=== PATIENT | male | born 1955 | race Caucasian/White ===

== ENCOUNTER → 2019-12-02 11:37 | Outpatient (BNVA) | payer MEDICARE, MEDICAID, SELFPAY | PROVIDERS: Family Provider Family Medicine; PCP Family Medicine; Visit Provider Orthopaedic Surgery | DX: M25.561 Pain in right knee (principal) | CPT/HCPCS: 73562 ==

== ENCOUNTER 2019-12-09 05:46 | Day surgery (SDC) | payer MEDICARE, MEDICAID, SELFPAY ==
--- NOTE | 2019-12-06 10:44 | ECG_ITS ---
Measurements Intervals [place] Rate: 81 P: 46 IA: 183 QRS: -46 QRSD: 97 T: 40 QT: 359 QTc: 419 SINUS RHYTHM PATTERN CONSISTENT WITH PULMONARY DISEASE LEFT ANTERIOR FASCICULAR BLOCK [QRS AXIS <= -45, QR IN I, RS IN II] MINIMAL VOLTAGE CRITERIA FOR LVH, CONSIDER NORMAL VARIANT [MEETS CRITERIA IN ONE OF: R(aVL), S(V1), R(V5), R(V5/V6)+S(V1)] Compared to ECG 09/27/2018 10:49:57 No significant changes Electronically Signed On 12-06-2019 22:08:06 [facility] by Carmelo Mac M.D. [id number]
[2019-12-06 11:19] VITALS: BMI 28.6
--- NOTE | 2019-12-06 11:54 | ANES.PREANES ---
Pre-Anesthetic Assessment Pre-Anesthetic Assessment: Height/Weight: Height 1.83 m Weight 95.708 kg Preop Diagnosis: right knee medial and lateral meniscal tears Proposed Procedure: Operation Date: 12/09/19 07:40 Proposed Procedures p Knee Arthroscopy with medial and lateral meniscectomy 12922 M17.11(Right) - Rubens Vazquez DO Social: Social History: Tobacco Pack years: 30 Comment: quit 30 years ago Exam: Pre-Anes Outpt Exam: alert, oriented x 3, clear to auscultation bilaterally and regular rate & rhythm Airway: Submandibular: WNL Cervical ROM: WNL MP: 2 CV/HEM: CV/HEM: HTN (rx'd x 10 y) and [facility] Comments: '08 [facility] stents x 11, last '12, Without angina Metabolic: Metabolic: DM Comments: rx'd 20y, normally 130-160 Musc/skel: Musc/skel: Lower Back Pain Comments: left radiculopathy Anesthetic Plan: ASA status: III PFSH Anesthesia PFSH: Social History Smoking and tobacco status: never smoked Alcohol intake: never Data Anesthesia Cardiac Studies: No Data to Display
[2019-12-06 12:36] LABS: Anion Gap 15.3 (5-19); Blood Urea Nitrogen 21 mg/dL (8-23); Calcium 9.7 mg/Dl (8.8-10.2); Carbon Dioxide 29 mmol/L (22-29); Chloride 97 mmol/L (98-107); Glomerular Filtration Rate 96.7 mL/min (90-130); Glucose 108 mg/dL (74-106); Potassium 4.3 mmol/L (3.5-5.1); Sodium 137 mmol/L (136-145)
[2019-12-09] VITALS (7 sets, daily range): BP systolic 111–138; BP diastolic 68–78; PULSE 65–89; RESP 12–18; TEMP 36.1–37.3; O2SAT 93–100
[2019-12-09 06:16] LABS: Glucose Point of Care 158 mg/dL (70-110)
--- NOTE | 2019-12-09 06:57 | PM.HPUD ---
H&P update H&P Update: DATE OF SURGERY/PROCEDURE: 12/09/19 DATE H&P PERFORMED: 12/02/19 PLANNED PROCEDURE: Operation Date: 12/09/19 07:40 Proposed Procedures p Knee Arthroscopy with medial and lateral meniscectomy 65285 M17.11(Right) - Rubens Vazquez DO Full H&P Perinent History: Medical/Surgical History: Medical History (Updated 12/03/19 @ 18:20 by Rubens Vazquez DO) Tear of lateral meniscus of right knee, current (Acute) Tear of medial meniscus of right knee (Acute) Family History: Family History (Updated 12/02/19 @ 11:57 by Jenn Paige LPN) Father CAD (coronary artery disease) Hypertension Stroke Brother Cancer Grandmother Diabetes Hyperlipidemia Denies family history of Clotting disorder Dementia Psychiatric illness Chronic kidney disease (CKD) Suicide Anesthesia complication Bleeding disorder Family history of premature coronary artery disease Lung disease Social History: Social History Smoking and tobacco status: never smoked Alcohol intake: never
--- NOTE | 2019-12-09 06:58 | P.OP_ITS ---
Operative Report Date of procedure: 12/09/19 Pre-op Diagnosis: right knee medial and lateral meniscal tears Post-op diagnosis: same Post-op Findings: Right knee medial and lateral degenerative meniscal tears with tricompartmental osteoarthritis with grade 2-3 changes throughout the right knee Procedure Done: Diagnostic arthroscopy right knee with partial arthroscopic medial and lateral meniscectomies Implants: Not applicable Specimens removed/disposition: Portions of synovium, articular cartilage and resected portions of medial and lateral menisci disposed of in OR Pathology: none sent Surgeon: Rubens Vazquez Anesthesia: General Estimated blood loss (mL): 5 Tourniquet time (min): 22 (At 300 mmHg pressure) Complications: None Findings: See postop findings Anterior and posterior cruciate ligaments intact both visually endoprobe Condition: stable Disposition: PACU Brief History: 64-year-old white male with chronic complaints of right knee pain. Past medical history remarkable for IM nailing of intertrochanteric right-sided hip fracture. He has had pain since his injury caused by intertrochanteric hip fracture. X-rays show tricompartmental osteoarthritis but not [id number] changes in the right knee. MRI showed increased signal in the medial and lateral menisci suggestive of degenerative tearing as well as arthritic change small amount of fluid. Risk, benefits potential complications of surgery scuffs the patient. Risks include are not limited to failure of all pain positive for the surgery later date such as total knee replacement, infection, nerve/blood vessel/injury. Medical complications include blood clots, heart attack, stroke risk up to including . All questions answered patient able to proceed with surgery. Procedure: Patient notified in the preop holding area. Surgical site was signed. Surgical permit was signed. Patient to 2 g of Ancef intravenously for surgical prophylaxis. He was taken to the operating. He was placed supine on the operative table. He was placed under general anesthesia that difficulty. Tourniquet is placed at the upper aspect of the right thigh. Right lower extremity and sterilely prepped and draped usual fashion. A timeout was performed. The areas for making her anteromedial anterolateral portals were injected with 10 cc of one-to-one mixture of 1% lidocaine half percent r opivacaine. Operative limb was exsanguinated using Esmarch bandage tourniquet deflated to 300 mmHg pressure. Standard anteromedial and lateral portals made with #11 blade. Otoscopic sheath with the scope was inserted into the suprapatellar pouch the knee was distended using sterile saline and dilute epinephrine solution using the arthroscopic pump. Probe was inserted through the anteromedial portal. Systematic examination of the right knee was performed. See above findings. Using medical biters and motorized shaver we first resected the torn areas of the free edge of the lateral meniscus followed by resection of the posterior horn tear of the medial meniscus. Incidental chondroplasties of the tibial plateaus and femoral condyles medial and laterally was performed. We use the motorized shaver to remove loose fragments of meniscal tissue from the knee as well as portions of synovium to facilitate the visualization. Once the knee was copiously irrigated. The portals were closed with nylon sutures on skin the was injected with 10 cc of half percent ropivacaine and 40 mg of Kenalog. Antibiotic ointment was applied followed by sterile dressings. Victor Hugo wrap was applied from ankle to mid thigh. Tourniquet was deflated during application of dressings. The patient was aroused from general anesthesia. He was taken to recovery. Tolerated surgery well. All counts are correct.
[2019-12-09] MEDS: sodium chloride 0.9% 1,000 ML 30 ML IV (07:00)
--- NOTE | 2019-12-09 07:52 | P.ANES_ITS ---
Pre-Anesthetic Update Pre-Anesthetic Assessment: Date of Surgery/Procedure: 12/09/19 Preop Suzan gnosis: right knee medial and lateral meniscal tears Proposed Procedure: Operation Date: 12/09/19 07:40 Proposed Procedures p Knee Arthroscopy with medial and lateral meniscectomy 77519 M17.11(Right) - Rubens Vazquez, DO Any changes to Pre-Anesthetic Assessment?: No Last Intake: Intake Last Liquid Date 12/08/19 Last Liquid Time 23:45 Last Solid Date 12/08/19 Last Solid Time 23:45 Labs Last 48hrs: Laboratory Results - last 48 hr 12/09/19 06:13 POC Glucose 158 Vitals: Temperature 99.1 F 12/09/19 06:15 Temperature Source Temporal Artery S can 12/09/19 06:15 Pulse Rate 80 12/09/19 06:15 Pulse Rhythm 12/09/19 06:15 Pulse Strength 3+ Normal 12/09/19 06:15 Respiratory Rate 18 12/09/19 06:15 Respiratory Effort Non-Labored 12/09/19 06:15 Respiratory Depth Normal 12/09/19 06:15 Blood Pressure 138/76 12/09/19 06:15 Blood Pressure Nataliya n 96 12/09/19 06:15 Pulse Oximetry 93 12/09/19 06:15 Oxygen Delivery Me thod 12/09/19 06:15 Exam: Pre-Anes Outpt Exam: alert, oriented x 3, clear to auscultation bilaterally and regular rate & rhythm Cardiac Studies: No Data to Display
[2019-12-09] MEDS: triamcinolone 40 mg/mL SDV IM (08:24)
[2019-12-09] MEDS: EPINEPHrine 1 mg/mL INJ 2 MG XX (08:24)
[2019-12-09] MEDS: neomycin-poly-bacitracin oint 28 gm 1 APPLIC TOPICAL (08:41)
== END 2019-12-09 10:15 | disposition home or self-care (01) ==
PROVIDERS: Anesthesiology; Family Provider Family Medicine; PCP Family Medicine; Visit Provider Orthopaedic Surgery
PROC: (CPT 29870; principal; 2019-12-09 07:40)
DX: S83.281A Other tear of lateral meniscus, current injury, right knee, initial encounter (principal); S83.241A Other tear of medial meniscus, current injury, right knee, initial encounter; X58.XXXA Exposure to other specified factors, initial encounter; Z82.49 Family history of ischemic heart disease and other diseases of the circulatory system; Z83.3 Family history of diabetes mellitus
CPT/HCPCS: 29880; 12345; 36415; 36416; 80048; 82962; 93005; 96365; J0171; J0330; J0690; J1885; J2001; J2370; J2405; J2704; J2765; J2795; J3010; J3301; J3490; J7030

== ENCOUNTER → 2020-03-09 08:55 | Outpatient (BNVA) | payer MEDICARE, MEDICAID, SELFPAY | PROVIDERS: Family Provider Family Medicine; PCP Family Medicine; Referring Provider Family Medicine; Visit Provider Orthopaedic Surgery | DX: M25.551 Pain in right hip (principal) | CPT/HCPCS: 73502 ==

== ENCOUNTER 2020-03-19 08:08 | Outpatient (CLI) | payer MEDICARE, MEDICAID, SELFPAY ==
--- NOTE | 2020-03-19 08:30 | CT_ITS ---
WS: [id number] CT RIGHT HIP, NONCONTRAST. HISTORY: post operative state Technique: All CT scans at [facility] use at least one of these dose optimization techniq ues: automated exposure control; mA and/or kV adjustment per patient size (includes targeted exams wh ere dose is matched to clinical indication); or iterative reconstruction. DLP: 1415.92 mGycm COMPARISON: 03/09/2020 radiographs. Status post long intramedullary femoral olya with single femoral neck screw. Femoral neck fracture sti ll evident without callus formation or complete healing. The alignment is normal. Distal locking scre w unchanged since the most recent radiographs. No fracture distally. Central position of the intramed ullary olya. No fluid collections or soft tissue abnormalities. Mild osteopenia. There is bowing of the distal intramedullary locking screw. New finding since 04/18/2019. There does ap pear to be a gap within the threads of the screw centrally seen on image 147 of series 2. Suspicious but not diagnostic for fracture of the locking screw. CT/CT hip RT wo con* [id number] IMPRESSION: 1. Status post long intramedullary olya and screw fixation of the femoral neck fracture. Fracture is still evident without callus formation or complete healin g. Alignment is good. 2. No fracture or abnormality along the distal intramedullary olya. 3. There is mild bowing of the distal locking screw. No screw fracture is iden tified. This does represent a change since the prior radiograph of 04/18/2019. [place] spect there could be a fracture as there is a gap within the screw threads in t he central intramedullary olya.
== END 2020-03-19 08:09 | disposition home or self-care (01) ==
PROVIDERS: Family Provider Family Medicine; PCP Family Medicine; Visit Provider Orthopaedic Surgery
DX: Z48.89 Encounter for other specified surgical aftercare (principal); S72.001A Fracture of unspecified part of neck of right femur, initial encounter for closed fracture; X58.XXXA Exposure to other specified factors, initial encounter
CPT/HCPCS: 73700

== ENCOUNTER 2020-03-26 10:45 | Outpatient (CLI) | payer MEDICARE, MEDICAID, SELFPAY ==
[2020-03-26 11:17] LABS: Basophils % 0.5 %; Eosinophils # 0.4 10^3/uL (0.0-0.8); Hematocrit 45.3 % (42.0-52.0); Hemoglobin 14.4 g/dL (11.7-16.6); Lymphocytes % 35.5 %; Mean Corpuscular HGB Conc 31.8 g/dL (30.0-36.0); Mean Corpuscular Hemoglobin 28.4 pg (28.0-34.0); Mean Corpuscular Volume 89.3 fL (80-94); Mean Platelet Volume 11.4 fL (7.4-10.4); Monocytes # 0.5 10^3/uL (0.2-0.9); Monocytes % 9.5 %; Neutrophils # 2.7 10^3/uL (1.8-7.7); Neutrophils % 47.1 %; Nucleated Red Blood Cells % 0 %; Platelet Count 162 10^3/cmm (130-400); Red Blood Count 5.07 10^6/uL (4.1-5.3); Red Cell Distribution Width 13.7 % (12.1-15.1); White Blood Count 5.7 10^3/uL (4.0-10.0)
[2020-03-26 11:48] LABS: Alanine Aminotransferase 40 U/L (0-41); Albumin Level 4.4 g/dL (3.5-5.2); Alkaline Phosphatase 72 IU/L (40-130); Anion Gap 15.7 (5-19); Aspartate Amino Transferase 33 U/L (0-40); Blood Urea Nitrogen 13 mg/dL (8-23); C Reactive Protein 2.7 mg/L (0.0-4.9); Carbon Dioxide 27 mmol/L (22-29); Chloride 103 mmol/L (98-107); Globulin 3.7 g/dL (1.3-4.6); Glomerular Filtration Rate 96.7 mL/min (90-130); Glucose 118 mg/dL (65-115); Osmolality Calculated 289 mOsm/kg (285-295); Potassium 4.7 mmol/L (3.5-5.1); Sodium 141 mmol/L (136-145); Total Bilirubin 0.3 mg/dL (0.15-1.2); Total Protein 8.1 g/dL (6.6-8.7)
[2020-03-26 12:07] LABS: Erythrocyte Sedimentation Rate 34 mm/hr (0-10)
[2020-03-30 11:55] LABS: Vit D 1,25 (Oh)2, Total 38 pg/mL (18-72); Vit D2 1,25 (Oh)2 <8 pg/mL; Vit D3 1,25 (Oh)2 38 pg/mL
== END 2020-03-26 10:46 | disposition home or self-care (01) ==
LOC: LAB 10:50
PROVIDERS: PCP Family Medicine; Visit Provider Orthopaedic Surgery
DX: S72.041A Displaced fracture of base of neck of right femur, initial encounter for closed fracture (principal); X58.XXXA Exposure to other specified factors, initial encounter
CPT/HCPCS: 36415; 80053; 82652; 85025; 85651; 86140

== ENCOUNTER 2020-04-05 09:00 | Day surgery (SDC) | payer MEDICARE, MEDICAID, SELFPAY ==
[2020-04-05 10:19] VITALS: BMI 27.8
[2020-04-05 10:48] LABS: Basophils # 0.1 10^3/uL (0.0-0.1); Basophils % 0.9 %; Eosinophils # 0.4 10^3/uL (0.0-0.8); Eosinophils % 7.4 %; Hematocrit 39.1 % (42.0-52.0); Hemoglobin 12.6 g/dL (11.7-16.6); Lymphocytes # 2.3 10^3/uL (0.8-4.8); Lymphocytes % 39.8 %; Mean Corpuscular HGB Conc 32.2 g/dL (30.0-36.0); Mean Corpuscular Hemoglobin 28.3 pg (28.0-34.0); Mean Corpuscular Volume 87.7 fL (80-94); Mean Platelet Volume 11.5 fL (7.4-10.4); Monocytes # 0.7 10^3/uL (0.2-0.9); Monocytes % 12.5 %; Neutrophils # 2.3 10^3/uL (1.8-7.7); Neutrophils % 39.2 %; Nucleated Red Blood Cells % 0 %; Platelet Count 160 10^3/cmm (130-400); Red Blood Count 4.46 10^6/uL (4.1-5.3); Red Cell Distribution Width 13.4 % (12.1-15.1); White Blood Count 5.8 10^3/uL (4.0-10.0)
--- NOTE | 2020-04-05 10:51 | ANES.PREANE2 ---
Pre-Anesthetic Assessment Pre-Anesthetic Assessment: Height/Weight: Height 1.83 m Weight 92.986 kg Preop Diagnosis: symtomatic hardware right hip/thigh Proposed Procedure: Operation Date: 04/12/20 08:00 Proposed Procedures p Removal of hardware rigth hip and femur/92984 S72.041A T84.84XA(Right) - Rubens Vazquez DO Familial anesthetic complications: None Social: Social History: No alcohol and No tobacco Exam: Pre-Anes Outpt Exam: alert, oriented x 3, clear to auscultation bilaterally and regular rate & rhythm Airway: Cervical ROM: WNL MP: 3 Additional comments: missing Pulmonary: Pulmonary: None reported CV/HEM: CV/HEM: CAD (Stents in 2012 - on plavix) and [place] (2007) GI: GI: GERD Metabolic: Metabolic: DM Anesthetic Plan: ASA status: 3 Anesthesia: General PFSH Anesthesia PFSH: Medical History (Updated 03/28/20 @ 22:35 by Rubens Vazquez DO) Atherosclerosis of [place] coronary artery of [place] heart without angina pectoris Atypical angina Atypical chest pain The EKG revealed possible ectopic atrial rhythm. Left axis deviation. Poor R wave progression. 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 Hematochezia Hyperlipidemia, mixed Leg pain Neuropathy Osteoarthritis of right AC (acromioclavicular) joint Shoulder impingement Sleep apnea Tear of lateral meniscus of right knee, current Tear of medial meniscus of right knee Type 2 diabetes mellitus Varicose vein of leg Surgical History H/O angioplasty H/O arthroscopy of left knee H/O arthroscopy of right knee With resection of medial and lateral meniscal tears H/O carpal tunnel repair H/O hernia repair H/O laminectomy H/O shoulder surgery History of coronary artery stent placement Family History Father CAD (coronary artery disease) Hypertension Stroke Brother Cancer Grandmother Diabetes Hyperlipidemia Denies family history of Clotting disorder Dementia Psychiatric illness Chronic kidney disease (CKD) Suicide Anesthesia complication Bleeding disorder Family history of premature coronary artery disease Lung disease Social History Smoking and tobacco status: never smoked Alcohol intake: never Lives independently: Yes (with girlfriend) Household members: significant other Marital status: / Current occupational status: retired 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
[2020-04-05 11:04] LABS: Alanine Aminotransferase 34 U/L (0-41); Albumin Level 4.4 g/dL (3.5-5.2); Alkaline Phosphatase 67 IU/L (40-130); Anion Gap 15.3 (5-19); Aspartate Amino Transferase 33 U/L (0-40); Blood Urea Nitrogen 15 mg/dL (8-23); Carbon Dioxide 26 mmol/L (22-29); Chloride 100 mmol/L (98-107); Globulin 2.9 g/dL (1.3-4.6); Glomerular Filtration Rate 96.7 mL/min (90-130); Glucose 188 mg/dL (65-115); Osmolality Calculated 285 mOsm/kg (285-295); Potassium 4.3 mmol/L (3.5-5.1); Sodium 137 mmol/L (136-145); Total Bilirubin 0.2 mg/dL (0.15-1.2); Total Protein 7.3 g/dL (6.6-8.7)
== END 2020-04-05 10:00 | disposition home or self-care (01) ==
LOC: OR 07-05 14:41
PROVIDERS: PCP Family Medicine; Visit Provider Orthopaedic Surgery
DX: T84.84XA Pain due to internal orthopedic prosthetic devices, implants and grafts, initial encounter (principal); Y79.3 Surgical instruments, materials and orthopedic devices (including sutures) associated with adverse incidents; Z53.9 Procedure and treatment not carried out, unspecified reason
CPT/HCPCS: 80053; 85025

== ENCOUNTER 2020-04-23 08:43 | Outpatient (CLI) | payer MEDICARE, MEDICAID, SELFPAY ==
--- NOTE | 2020-04-23 09:05 | ECG_ITS ---
NAME OF STUDY: LEXISCAN SESTAMIBI STRESS TEST INDICATION: Chest Pain, PROCEDURE: At the baseline, the EKG revealed normal sinus rhythm with a poor R wave progression. The baseline blood pressure was 123/72 mm Hg with a heart rate of 72 beats/min. Lexiscan was infused over a period of 20 seconds. A total of 0.4 milligrams of Lexiscan was infused. The stress phase was continued for a total of 5 minutes. Heart rate at the end of the stress phase was 79 with a blood pressure 104/78. The EKG at the peak infusion revealed no significant changes. Sestamibi was injected 20 seconds after the Lexiscan infusion. Blood pressure at the end of the recovery phase was 110/62 with a heart rate of 78 per minute. CONCLUSION: 1. No significant EKG changes with the LexiScan infusion 2. No LexiScan induced chest pain or cardiac arrhythmia 3. Normal blood pressure and heart rate response 4. Sestamibi/sestamibi perfusion scan pending; see separate report. Electronically Signed On 04-23-2020 19:25:12 CDT by Carmelo Mac M.D. [id number]
[2020-04-23 09:06] VITALS: BMI 27.8
--- NOTE | 2020-04-23 09:06 | NMCV_ITS ---
NM zac perf SPECT r/s* [id number] Giovany Garcia Age: 64 Gender: M : 1955 Exam Date: 04/23/2020 09:06 Ordering Phys: Carmelo Mac MD ([email or web address]) Technologist: JUNIOR Montoya Exam Location: [facility] Indications: ASHD, CP STRESS TEST Please see separate stress test report in [facility] for full findings IMAGE PROTOCOL Rest/Stress 1 Lexiscan Day Radiopharmaceutical Dose (mCi) Administration Site Administered by Rest: Tc-99m 10.4 IV JUNIOR Montoya Sestamibi Stress:Tc-99m 32.7 IV JUNIOR Montoya Sestamibi Rest: 23-Apr-2020 60 Discovery 630 Stress: 23-Apr-2020 45 Discovery 630 0.4mg Lexiscan. Supine position only as patient was unable to lay prone. SPECT RESULTS Technical Quality: Good Raw Data Analysis: Normal Image Corrections: Patient motion artifact - partial motion correction applied stress images. Summed Stress Score: 0 Summed Rest Score: 0 Summed Difference Score: 0 PERFUSION FINDINGS Fairly uniform myocardial tracer uptake with no significant perfusion abnormalities. A small area of slightly decreased tracer uptake was noted in the basal and mid inferior wall region, with some reversibility FUNCTIONAL RESULTS (calculated via Gated SPECT) Stress Image LV EF (%): 58 Stress EDV (mL):76 TID: 1.09 Stress ESV (mL):32 FUNCTIONAL FINDINGS: Segmental wall motion analysis revealing no gross wall motion normalities IMPRESSIONS 1. Myocardial perfusion imaging revealing small area of reversible defect in the basal and mid inferior wall region, suggestive of ischemia in the distribution of the right coronary artery. However since there was no significant reversible defect by the polar plot, the reliability of this finding is compromised. 2. Normal LV ejection fraction of 58%. 3. LV wall motion analysis revealing no gross wall motion normalities. 4. Normal LV volume. No similar previous studies are available for comparison Dr Carmelo Mac MD [facility] (Electronically Signed) Final Date: 23 April 2020 18:21 S
[2020-04-23] MEDS: regadenoson 0.4 Mg/5 ml Syringe IVP (10:40)
[2020-04-23 10:57] VITALS: BP 101/72; PULSE 82
== END 2020-04-23 08:44 | disposition home or self-care (01) ==
LOC: RAD 08:49 → CDL 09:16
PROVIDERS: PCP Family Medicine; Visit Provider Internal Medicine Cardiovascular Disease
DX: R07.89 Other chest pain (principal); I25.10 Atherosclerotic heart disease of native coronary artery without angina pectoris
CPT/HCPCS: 78452; 93017; A9500; J2785

== ENCOUNTER → 2020-05-07 11:30 | Outpatient (BNVA) | payer MEDICARE, MEDICAID, SELFPAY | PROVIDERS: PCP Family Medicine; Visit Provider Specialist | DX: S72.001K Fracture of unspecified part of neck of right femur, subsequent encounter for closed fracture with nonunion (principal); X58.XXXD Exposure to other specified factors, subsequent encounter | CPT/HCPCS: 73552 ==

== ENCOUNTER 2020-07-15 08:50 | Observation (INO) | payer MEDICARE, MEDICAID, SELFPAY ==
[2020-07-15] VITALS (9 sets, daily range): BP systolic 106–155; BP diastolic 65–88; PULSE 73–110; RESP 13–21; TEMP 36.3–37.1; O2SAT 92–98; BMI 31.1
--- NOTE | 2020-07-15 09:04 | PC.NURSE ---
accucheck 288
[2020-07-15 09:07] LABS: Glucose Point of Care 288 mg/dL (70-110)
--- NOTE | 2020-07-15 09:24 | CT_ITS ---
WS: [id number] CT HEAD NONCONTRAST HISTORY: AMS, fall TECHNIQUE: Contiguous axial imaging performed through the brain in 2.5 mm imaging. Bone and soft tiss ue windows. Sagittal and coronal reformats reviewed. All CT scans at [facility] use at le ast one of these dose optimization techniques: automated exposure control; mA and/or kV adjustment pe r patient size (includes targeted exams where dose is matched to clinical indication); or iterative r econstruction. DLP: 753.95 mGy.cm COMPARISON: 09/13/2017 Bilateral frontotemporal atrophy similar to the prior study. Atrophy is more pronounced than expected for the patient's age. No acute blood products or edema. Mild chronic microvascular ischemic disease . There is also moderate bilateral cerebellar atrophy which is similar to the prior study. Ventricles: Normal size with no hydrocephalus. Paranasal sinuses: Mild mucoperiosteal thickening ethmoid air cells. Mastoid air cells: Well pneumatized. Calvarium and scalp: Small amount of edema in the scalp over the posterior occiput. Additional mild s calp thickening over the LEFT frontal bone. Both of these areas were present on the prior study. CT/CT head wo con* [id number] IMPRESSION: 1. No acute intracranial hemorrhage or edema. 2. Cerebral and cerebellar atrophy as described above. Similar to the prior st carolyny. The amount of atrophy is more than expected for patient's age.
--- NOTE | 2020-07-15 09:24 | ECG_ITS ---
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 Measurements Intervals [place] Rate: 89 P: 39 MS: 185 QRS: -39 QRSD: 103 T: 66 QT: 368 QTc: 448 Interpretive Statements SINUS RHYTHM LEFT AXIS DEVIATION [QRS AXIS < -30] PATTERN CONSISTENT WITH PULMONARY DISEASE Compared to ECG 12/06/2019 11:45:35 Left-axis deviation now present Left anterior fascicular block no longer present Electronically Signed On 07-16-2020 0:16:34 CDT by Carmelo Mac M.D. [id number]
--- NOTE | 2020-07-15 09:24 | XR_ITS ---
WS: [id number] PORTABLE CHEST HISTORY: fall, AMS COMPARISON: 06/04/2016 Mild emphysema. No pneumonia. Normal vasculature. No pleural effusion or pneumothorax. Cardiac size: Normal. Mediastinum/Aorta: Normal mediastinum. No osseous abnormality seen. XR/XR chest 1V portable [id number] IMPRESSION: Chronic emphysema with no pneumonia.
--- NOTE | 2020-07-15 09:27 | CT_ITS ---
WS: [id number] CT CERVICAL SPINE HISTORY: all, AMS TECHNIQUE: Contiguous 2.5 mm axial imaging performed through the entire cervical spine. Sagittal and coronal reformats also performed. All CT scans at [facility] use at least one of these do se optimization techniques: automated exposure control; mA and/or kV adjustment per patient size (inc ludes targeted exams where dose is matched to clinical indication); or iterative reconstruction. DLP: 623.61 mGy.cm COMPARISON: 09/13/2017 Straightening and reversal the normal cervical lordosis. Mild LEFT convex curvature. Significant prog ression of degenerative changes and osteophytes since the prior study. There is mild anterior wedging of the C6 vertebral body and C7 vertebral bodies but no acute fracture. Craniocervical junction is n ormal. Moderate facet joint arthropathy and narrowing on the LEFT at C2-3. There is additional modera te bilateral facet joint arthritis. Lateral masses of C1 and C2 are aligned. Odontoid is intact. C2-C3: Severe LEFT facet joint arthritis. C3-C4: Mild RIGHT and severe LEFT facet joint arthritis. Mild osteophyte encroachment upon the thecal sac and foramen. C4-C5: Diffuse circumferential osteophytosis and bridging and facet joint arthritis. Mild central and LEFT foraminal stenosis. Severe RIGHT foraminal stenosis. C5-C6: Diffuse osteophytic ridging and facet joint arthritis. Osteophytes encroach upon the ventral t hecal sac. Moderate central and LEFT foraminal stenosis. C6-C7: Diffuse osteophytic ridging encroaching upon the ventral thecal sac. Severe LEFT foraminal ruperto nosis with mild central stenosis. C7-T1: Osteophytic ridging with mild bilateral foraminal stenosis. Moderate atherosclerosis in the vertebral arteries. CT/CT cervical spin wo con* [id number] IMPRESSION: 1. No acute cervical spine fracture. 2. Moderate progression of degenerative spondylosis and scoliosis since 2017. 3. Multifocal areas of mild to severe foraminal and central stenoses as above. Most significant stenosis from C4-5 to C6-7.
[2020-07-15] MEDS: lactated ringers 1,000 ML 999 ML IV (09:41)
[2020-07-15] MEDS: LORazepam 2 mg/mL INJ 1 mL IVP (09:41)
[2020-07-15 10:26] LABS: Basophils % 0.2 %; Eosinophils # 0.2 10^3/uL (0.0-0.8); Eosinophils % 1.8 %; Hematocrit 36.3 % (42.0-52.0); Hemoglobin 11.6 g/dL (11.7-16.6); Lymphocytes # 0.8 10^3/uL (0.8-4.8); Lymphocytes % 9.4 %; Mean Corpuscular Hemoglobin 28.6 pg (28.0-34.0); Mean Corpuscular Volume 89.6 fL (80-94); Mean Platelet Volume 11.4 fL (7.4-10.4); Monocytes # 0.4 10^3/uL (0.2-0.9); Monocytes % 4.2 %; Neutrophils # 7.37 10^3/uL (1.8-7.7); Neutrophils % 84.3 %; Nucleated Red Blood Cells % 0 %; Platelet Count 175 10^3/cmm (130-400); Red Blood Count 4.05 10^6/uL (4.1-5.3); Red Cell Distribution Width 13.9 % (12.1-15.1); White Blood Count 8.8 10^3/uL (4.0-10.0)
[2020-07-15 10:32] LABS: ABG PCO2 45.5 mmHg (35-45); ABG PH Result 7.37 (7.35-7.45); Arterial Blood Gas Hematocrit 38.8 % (42-52); Base Excess ABG 0.9 mmol/L (-2.0-2.0); Blood Gas Allen Test Pos; Blood Gas Operator Identificat glc; Blood Gas Sample Site Radial, left; Blood Gas Sample Type Arterial; HCO3 ABG 26.5 mmol/L (22-26); Oxygen Device ROOM AIR; PO2 ABG 58.2 mmHg (80.0-100.0)
[2020-07-15 10:34] LABS: Blood Gas CCRB Time 1040
[2020-07-15 10:37] LABS: INR 1.02 (0.8-1.2)
[2020-07-15 10:45] LABS: Alanine Aminotransferase 23 U/L (0-41); Albumin Level 3.9 g/dL (3.5-5.2); Alkaline Phosphatase 66 IU/L (40-130); Anion Gap 13.3 (5-19); Aspartate Amino Transferase 21 U/L (0-40); Blood Urea Nitrogen 20 mg/dL (8-23); Calcium 8.4 mg/dL (8.5-10.5); Carbon Dioxide 26 mmol/L (22-29); Chloride 101 mmol/L (98-107); Creatine Phosphokinase 159 U/L (39-308); Globulin 3.2 g/dL (1.3-4.6); Glomerular Filtration Rate 112.5 mL/min (90-130); Glucose 281 mg/dL (65-115); Lactic Sepsis W/Reflex 2.5 mmol/L (0.5-2.2); Osmolality Calculated 289 mOsm/kg (285-295); Potassium 4.3 mmol/L (3.5-5.1); Sodium 136 mmol/L (136-145); Total Bilirubin 0.4 mg/dL (0.15-1.2); Total Protein 7.1 g/dL (6.6-8.7)
[2020-07-15 10:46] LABS: Ammonia 44 umol/L (16-60)
[2020-07-15 11:06] LABS: Alcohol Level < 10 mg/dL (0-10)
[2020-07-15 11:18] LABS: Reflex Lactate Order REFLEX LACTIC ORDERD
[2020-07-15 11:21] LABS: Add Urine Microscopic? NO
[2020-07-15 12:09] LABS: Bilirubin Urine Neg (NEGATIVE); Blood Urine Neg (Negative); Glucose Urine UA 4+ (Normal); Ketones Urine Negative (Negative); Leukocyte Esterase Urine Negative (Negative); Nitrate Urine Negative (Negative); Protein Urine Neg (Negative); Urine Appearance Clear (CLEAR); Urine Color Yellow (Yellow); Urobilinogen Urine 1 mg/dL (Negative); pH Urine 7 (5-7)
[2020-07-15 12:18] LABS: Amphetamines Screen Urine Negative (Negative); Barbiturates Screen Urine Negative (Negative); Benzodiazepines Screen Urine Negative (Negative); Cocaine Screen Urine Negative (Negative); Opiate Screen Urine Positive (Negative); PCP Screen Urine Negative (Negative); THC Screen Urine Negative (Negative)
[2020-07-15] MEDS: haloperidol inj 5 mg/mL INJ 1 mL IVP (13:21)
--- NOTE | 2020-07-15 13:52 | ED_ITS ---
HPI - Altered Mental Status General: Chief Complaint: Altered Mental Status Stated Complaint: AMS; FOUND ON FLOOR Time Seen by Provider: 07/15/20 09:15 History of Present Illness: HPI narrative: This patient is a 65-year-old male who was brought in today by EMS. Apparently he was found on the floor next to his bed. Limited history is available. Apparently the patient had some surgery on his right leg fairly recently and from review of records I am suspecting that was to remove some hardware. He has chronic pain and has pain medications at home. Not known whether he may have taken some extra of those. EMS did give him Narcan without any real change in his mental status. MD complaint: altered mental status and decreased responsiveness Onset (ago): unknown Severity: severe Context: unknown Review of Systems General: Reports: ROS unobtainable due to medical condition and ROS unobtainable due to mental status [facility] ED PFSH: Medical History Atherosclerosis of [place] coronary artery of [place] heart without angina pectoris Atypical angina Atypical chest pain The EKG revealed possible ectopic atrial rhythm. Left axis deviation. Poor R wave progression. 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 Hematochezia Hyperlipidemia, mixed Leg pain Neuropathy Osteoarthritis of right AC (acromioclavicular) joint Shoulder impingement Sleep apnea Tear of lateral meniscus of right knee, current Tear of medial meniscus of right knee Type 2 diabetes mellitus Varicose vein of leg Surgical History H/O angioplasty H/O arthroscopy of left knee H/O arthroscopy of right knee With resection of medial and lateral meniscal tears H/O carpal tunnel repair H/O hernia repair H/O laminectomy H/O shoulder surgery History of coronary artery stent placement Family History Father CAD (coronary artery disease) Hypertension Stroke Brother Cancer Grandmother Diabetes Hyperlipidemia Denies family history of Clotting disorder Dementia Psychiatric illness Chronic kidney disease (CKD) Suicide Anesthesia complication Bleeding disorder Family history of premature coronary artery disease Lung disease Social History Smoking and tobacco status: never smoked Alcohol intake: never Lives independently: Yes (with girlfriend) Household members: significant other Marital status: / Current occupational status: retired 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 Not responsive to voice or commands. On initial evaluation seem to have clonic tonic movements of the left side of his body with contractures. HENMT: HEAD & SCALP: normal to inspection FACE & SINUS: normal facial exam Eye: GENERAL EYE: appearance normal, both eyes and all related structures Neck/C-Spine: COMMON NORMALS: supple, no meningeal signs and no JVD Chest: COMMONS NORMALS: normal inspection of the chest Resp: COMMON NORMALS: normal respiratory effort, No use of accessory muscles and clear to auscultation bilaterally AUSCULTATION: clear to auscultation bilaterally Cardio: COMMON NORMALS: no JVD, regular rate, regular rhythm and No murmurs present (Cardio) RATE: regular rate RHYTHM: regular rhythm GI: COMMON NORMALS: Normal to inspection, nondistended, normoactive bowel sounds present, Soft to palpation and non-tender INSPECTION: Yes normal to inspection AUSCULTATION: Yes normoactive bowel sounds PALPATION: Yes Soft to palpation Back/Pelvis: COMMON NORMALS: thoracic and lumbar spine normal to inspection Extremity: GENERAL: Yes normal exam except as noted (Right knee with an Victor Hugo wrap and Band-Aids.) Neuro: JOSE CARLOS COMA SCALE: document [facility] findings Jose Carlos coma scale eye opening: Spontaneous [place] coma scale verbal response: None Jose Carlos coma scale motor response: Localising Vandergrift coma scale total score: 10 SENSORIUM/ORIENTATION: Yes obtunded and Yes other (Rigid in both legs and left upper extremity. Eventually was noted to move all 4 extremities) MENINGEAL SIGNS: Yes no meningeal signs Psych: COMMON NORMALS: mental status grossly normal, cooperative and normal affect Skin: COMMON NORMALS: no rashes or lesions noted and turgor normal GENERAL SKIN EXAM: no rashes or lesions noted and turgor normal Urinary Catheter Management^: Calle: Cath Placed During This Visit: yes Urinary Catheter Date of Insertion: 07/15/20 Urinary Catheter Time of Insertion: 11:01 Course ED course: Patient's mental status did gradually improve however he remained nonverbal and uncooperative. Work-up was unremarkable with no significant findings on CT or labs. I am not sure whether this is a drug reaction or drug overdose or whether he may be having seizure activity or potentially even a stroke. I did give him Ativan and Keppra in case these are seizures. He will be admitted for further evaluation and monitoring. Vital Signs: Vital signs: Vital Signs Temperature 98.3 F 07/15/20 08:51 Pulse Rate 90 07/15/20 11:03 Respiratory Rate 21 H 07/15/20 13:30 Blood Pressure 154/76 07/15/20 13:30 Pulse Oximetry 97 07/15/20 13:30 MDM - Altered Mental Status Lab Data: Labs: Lab Results 07/15/20 07/15/20 07/15/20 Range/Units 09:04 10:12 10:12 WBC 8.8 (4.0-10.0) 10^3/ uL RBC 4.05 L (4.1-5.3) 10^6/u L Hgb 11.6 L (11.7-16.6) g/dL Hct 36.3 L (42.0-52.0) % MCV 89.6 (80-94) fL MCH 28.6 (28.0-34.0) pg MCHC 32.0 (30.0-36.0) g/dL RDW 13.9 (12.1-15.1) % Plt Count 175 (130-400) 10^3/c mm MPV 11.4 H (7.4-10.4) fL Neut % (Auto) 84.3 % Lymph % (Auto) 9.4 % Crockett % (Auto) 4.2 % Eos % (Auto) 1.8 % Baso % (Auto) 0.2 % Neut # (Auto) 7.37 (1.8-7.7) 10^3/u L Lymph # (Auto) 0.8 (0.8-4.8) 10^3/u L Crockett # (Auto) 0.4 (0.2-0.9) 10^3/u L Eos # (Auto) 0.2 (0.0-0.8) 10^3/u L Baso # (Auto) 0.0 (0.0-0.1) 10^3/u L Nucleated RBC % (a uto) 0 % Nucleated RBCs # 0.0 /100WBC PT (12.1-14.9) SECO NDS INR (0.8-1.2) Specimen Type Sample Site ABG pH (7.35-7.45) ABG pCO2 (35-45) mmHg ABG pO2 (80.0-100.0) mmH g ABG HCO3 (22-26) mmol/L ABG Base Excess (-2.0-2.0) mmol/ L Noel Test Hematocrit (42-52) % O2 Delivery Device FiO2 % Open Developer Operator ID Blood Gas Notified Time Sodium 136 (136-145) mmol/L Potassium 4.3 (3.5-5.1) mmol/L Chloride 101 (98-107) mmol/L Carbon Dioxide 26 (22-29) mmol/L Anion Gap 13.3 (5-19) BUN 20 (8-23) mg/dL Creatinine 0.7 (0.7-1.2) mg/dL GFR Calculation 112.5 (90-130) mL/min Glucose 281 H (65-115) mg/dL POC Glucose 288 (70-110) mg/dL Calculated Osmolal ity 289 (285-295) mOsm/k g Lactic Acid (0.5-2.2) mmol/L Calcium 8.4 L (8.5-10.5) mg/dL Total Bilirubin 0.4 (0.15-1.2) mg/dL AST 21 (0-40) U/L ALT 23 (0-41) U/L Alkaline Phosphata se 66 (40-130) IU/L Ammonia (16-60) umol/L Creatine Kinase 159 (39-308) U/L Total Protein 7.1 (6.6-8.7) g/dL Albumin 3.9 (3.5-5.2) g/dL Globulin 3.2 (1.3-4.6) g/dL Urine Color (Yellow) Urine Appearance (CLEAR) Urine pH (5-7) Ur Specific Gravit y (1.005-1.030) Urine Protein (Negative) Urine Glucose (UA) (Normal) Urine Ketones (Negative) Urine Blood (Negative) Urine Nitrate (Negative) Urine Bilirubin (NEGATIVE) Urine Urobilinogen (Negative) mg/dL Ur Leukocyte Yuliya ase (Negative) Urine Opiates Scre en (Negative) ng/mL Ur Barbiturates Sc reen (Negative) ng/mL Ur Phencyclidine S crn (Negative) ng/mL Ur Amphetamines Sc reen (Negative) ng/mL U Benzodiazepines Scrn (Negative) ng/mL Urine Cocaine Scre en (Negative) ng/mL U Marijuana (THC) Screen (Negative) ng/mL Ethyl Alcohol < 10 (0-10) mg/dL 07/15/20 07/15/20 07/15/20 Range/Units 10:12 10:12 10:12 WBC (4.0-10.0) 10^3/ uL RBC (4.1-5.3) 10^6/u L Hgb (11.7-16.6) g/dL Hct (42.0-52.0) % MCV (80-94) fL MCH (28.0-34.0) pg MCHC (30.0-36.0) g/dL RDW (12.1-15.1) % Plt Count (130-400) 10^3/c mm MPV (7.4-10.4) fL Neut % (Auto) % Lymph % (Auto) % Crockett % (Auto) % Eos % (Auto) % Baso % (Auto) % Neut # (Auto) (1.8-7.7) 10^3/u L Lymph # (Auto) (0.8-4.8) 10^3/u L Crockett # (Auto) (0.2-0.9) 10^3/u L Eos # (Auto) (0.0-0.8) 10^3/u L Baso # (Auto) (0.0-0.1) 10^3/u L Nucleated RBC % (a uto) % Nucleated RBCs # /100WBC PT 13.70 (12.1-14.9) SECO NDS INR 1.02 (0.8-1.2) Specimen Type Sample Site ABG pH (7.35-7.45) ABG pCO2 (35-45) mmHg ABG pO2 (80.0-100.0) mmH g ABG HCO3 (22-26) mmol/L ABG Base Excess (-2.0-2.0) mmol/ L Noel Test Hematocrit (42-52) % O2 Delivery Device FiO2 % Open Developer Operator ID Blood Gas Notified Time Sodium (136-145) mmol/L Potassium (3.5-5.1) mmol/L Chloride (98-107) mmol/L Carbon Dioxide (22-29) mmol/L Anion Gap (5-19) BUN (8-23) mg/dL Creatinine (0.7-1.2) mg/dL GFR Calculation (90-130) mL/min Glucose (65-115) mg/dL POC Glucose (70-110) mg/dL Calculated Osmolal ity (285-295) mOsm/k g Lactic Acid 2.5 H (0.5-2.2) mmol/L Calcium (8.5-10.5) mg/dL Total Bilirubin (0.15-1.2) mg/dL AST (0-40) U/L ALT (0-41) U/L Alkaline Phosphata se (40-130) IU/L Ammonia 44 (16-60) umol/L Creatine Kinase (39-308) U/L Total Protein (6.6-8.7) g/dL Albumin (3.5-5.2) g/dL Globulin (1.3-4.6) g/dL Urine Color (Yellow) Urine Appearance (CLEAR) Urine pH (5-7) Ur Specific Gravit y (1.005-1.030) Urine Protein (Negative) Urine Glucose (UA) (Normal) Urine Ketones (Negative) Urine Blood (Negative) Urine Nitrate (Negative) Urine Bilirubin (NEGATIVE) Urine Urobilinogen (Negative) mg/dL Ur Leukocyte Yuliya ase (Negative) Urine Opiates Scre en (Negative) ng/mL Ur Barbiturates Sc reen (Negative) ng/mL Ur Phencyclidine S crn (Negative) ng/mL Ur Amphetamines Sc reen (Negative) ng/mL U Benzodiazepines Scrn (Negative) ng/mL Urine Cocaine Scre en (Negative) ng/mL U Marijuana (THC) Screen (Negative) ng/mL Ethyl Alcohol (0-10) mg/dL 07/15/20 07/15/20 07/15/20 Range/Units 10:23 10:23 10:23 WBC (4.0-10.0) 10^3/ uL RBC (4.1-5.3) 10^6/u L Hgb (11.7-16.6) g/dL Hct (42.0-52.0) % MCV (80-94) fL MCH (28.0-34.0) pg MCHC (30.0-36.0) g/dL RDW (12.1-15.1) % Plt Count (130-400) 10^3/c mm MPV (7.4-10.4) fL Neut % (Auto) % Lymph % (Auto) % Crockett % (Auto) % Eos % (Auto) % Baso % (Auto) % Neut # (Auto) (1.8-7.7) 10^3/u L Lymph # (Auto) (0.8-4.8) 10^3/u L Crockett # (Auto) (0.2-0.9) 10^3/u L Eos # (Auto) (0.0-0.8) 10^3/u L Baso # (Auto) (0.0-0.1) 10^3/u L Nucleated RBC % (a uto) % Nucleated RBCs # /100WBC PT (12.1-14.9) SECO NDS INR (0.8-1.2) Specimen Type Arterial Sample Site Radial, left ABG pH 7.37 (7.35-7.45) ABG pCO2 45.5 H (35-45) mmHg ABG pO2 58.2 L (80.0-100.0) mmH g ABG HCO3 26.5 H (22-26) mmol/L ABG Base Excess 0.9 (-2.0-2.0) mmol/ L Noel Test Pos Hematocrit 38.8 L (42-52) % O2 Delivery Device Room air FiO2 21.0 % Open Developer Operator ID glc Blood Gas Notified Time 1040 Sodium (136-145) mmol/L Potassium (3.5-5.1) mmol/L Chloride (98-107) mmol/L Carbon Dioxide (22-29) mmol/L Anion Gap (5-19) BUN (8-23) mg/dL Creatinine (0.7-1.2) mg/dL GFR Calculation (90-130) mL/min Glucose (65-115) mg/dL POC Glucose (70-110) mg/dL Calculated Osmolal ity (285-295) mOsm/k g Lactic Acid (0.5-2.2) mmol/L Calcium (8.5-10.5) mg/dL Total Bilirubin (0.15-1.2) mg/dL AST (0-40) U/L ALT (0-41) U/L Alkaline Phosphata se (40-130) IU/L Ammonia (16-60) umol/L Creatine Kinase (39-308) U/L Total Protein (6.6-8.7) g/dL Albumin (3.5-5.2) g/dL Globulin (1.3-4.6) g/dL Urine Color Yellow (Yellow) Urine Appearance Clear (CLEAR) Urine pH 7 (5-7) Ur Specific Gravit y 1.010 (1.005-1.030) Urine Protein Neg (Negative) Urine Glucose (UA) 4+ H (Normal) Urine Ketones Negative (Negative) Urine Blood Neg (Negative) Urine Nitrate Negative (Negative) Urine Bilirubin Neg (NEGATIVE) Urine Urobilinogen 1 H (Negative) mg/dL Ur Leukocyte Yuliya ase Negative (Negative) Urine Opiates Scre en Positive H (Negative) ng/mL Ur Barbiturates Sc reen Negative (Negative) ng/mL Ur Phencyclidine S crn Negative (Negative) ng/mL Ur Amphetamines Sc reen Negative (Negative) ng/mL U Benzodiazepines Scrn Negative (Negative) ng/mL Urine Cocaine Scre en Negative (Negative) ng/mL U Marijuana (THC) Screen Negative (Negative) ng/mL Ethyl Alcohol (0-10) mg/dL Discharge Plan Discharge Prescriptions: No Action nitroglycerin [Nitrostat] 0.4 mg tablet, sublingual 0.4 mg SUBLINGUAL Q5M PRN (Reason: Chest Pain) RF: 0 clopidogrel [Plavix] 75 mg tablet 75 mg PO DAILY RF: 0 lisinopril 10 mg tablet 10 mg PO DAILY RF: 0 omeprazole 40 mg capsule,delayed release(DR/EC) 40 mg PO DAILY RF: 0 gabapentin [Neurontin] 300 mg capsule 300 mg PO QID RF: 0 ezetimibe [Zetia] 10 mg tablet 10 mg PO DAILY RF: 0 oxycodone 30 mg tablet 30 - 60 mg PO Q4H PRN (Reason: Pain) RF: 0 omega-3 acid ethyl esters [Lovaza] 1 gram capsule 1 cap PO BID RF: 0 morphine 100 mg capsule,extend.release pellets 100 mg PO QAM RF: 0 metformin 500 mg Tablet Extended Release 24 Hr 1,000 mg PO BID RF: 0 Lyrica 75 mg Capsule 75 mg PO Q8H RF: 0 Tresiba FlexTouch U-200 200 unit/mL (3 mL) insulin pen 120 unit SUBCUT DAILY RF: 0 Klor-Con M10 10 mEq tablet,ER particles/crystals 10 meq PO DAILY RF: 0 aspirin 325 mg Tablet See Rx Instructions .ROUTE .COMPLEX RF: 0 Cymbalta 60 mg Capsule,Delayed Release(Dr/Ec) 60 mg PO BID RF: 0 Jardiance 25 mg tablet 25 mg PO DAILY RF: 0 Coding Level of Care Code ED Cutter Inspector for Vaughn Solis
[2020-07-15 13:56] LABS: Lactic Acid level (Lactate) 3.1 mmol/L (0.5-2.2)
--- NOTE | 2020-07-15 15:30 | PC.NURSE ---
1400 ml of urine prodiced
--- NOTE | 2020-07-15 15:37 | P.HP_ITS ---
Providers/Chief Complaint Admitting Physician: Christopher Chandler MD Primary Care Provider: Carson Raman Chief Complaint: AMS; FOUND ON FLOOR History of Present Illness Giovany Garcia is a 65 year old male with a past medical history of insulin- dependent type 2 diabetes mellitus, history of CAD status post stenting on aspirin and Plavix, chronic right hip pain on morphine and Percocet, GERD, who presents to [facility] after a fall and altered mental status. Currently patient is examined in the emergency room, all he is saying is he wants to get up out of bed, does not follow commands, and is alert, but does not answer questions appropriately. Most of the history was obtained by patient's , patient's daughter, and ER staff. Patient's tells me that patient has been dealing with right hip pain, he had closed reduction of right right intertrochanteric hip fracture with long intramedullary nailing with proximal and distal interlocking by Dr. Vazquez, but the screws were giving him a lot of pain, thus patient is scheduled to have surgery to remove the rods and have a hip replacement. According to patient's , he is always in pain, he uses morphine and Percocet, to her knowledge she does not use more than the medication than prescribed, patient is on strict instructions to not ambulate, however he has been ambulating according to family members, the surgery was done up in [place], there is plans on doing a hip replacement. According to fa mikki members, patient has not been taking more medication than prescribed, I reviewed his pill bottles at bedside, his Percocet and morphine bottles are empty, pharmacy is not open to do a pill count. No fevers recently, no chills, no cough patient has had multiple falls according to family members, according to his daughter he does not follow instructions. No recent strokelike symptoms facial droop, slurring of speech, no paralysis, no numbness complaints. He does have an extensive cardiac history, but no chest pain complaints, no shortness of breath complaints. Did travel up to [place], no no exposure to COVID-19. No complaints of dysuria, or hematuria. No cough, no shortness of breath, no fevers. According to patient's sometime this morning, when she went and checked up on her , he was found facedown on the floor, she could not get him up off the floor, just was not acting appropriately, no seizure-like episodes, no strokelike symptoms, so she called her brother, who helped him off the floor. When EMS arrived, there was concerns for opiate overdose, he was given Narcan, but did not really respond. Down in the emergency room there was concerns for seizure-like episodes, due to twitching of his arm, he was given Keppra and Ativan, with no significant response. When I saw patient down to the emergency room, all he was trying to do was get up out of bed, stating that he needs to get up out of bed, does not follow commands, pupils are pinpoint. Moving all extremities, lifting his head up, not really answering questions. Blood pressure 108/86, pulse 77, respiratory 13, temperature 98.3, oxygen saturation 93 on room air, head CT negative for any intracranial bleed, cervical spine shows spinal stenosis, chest x-ray no focal pneumonia, UA not convincing for a UTI, white blood cell count 8.8, hemoglobin 11.6, PCO2 45.5, glucose 281, lactic acid 3.5, urine toxicology screen positive for opiates. Review of Systems General: Reports: ROS unobtainable due to medical condition Medications/Allergies Home Medications Medication Instructions Recorded Confirmed Last Taken Type clopidogrel 75 mg tablet 75 mg PO DAILY 12/02/19 07/15/20 06/05/20 History ezetimibe 10 mg tablet 10 mg PO DAILY 12/02/19 07/15/20 06/05/20 History gabapentin 300 mg capsule 300 mg PO QID cap 12/02/19 07/15/20 06/05/20 History lisinopril 10 mg tablet 10 mg PO DAILY 12/02/19 07/15/20 06/05/20 History morphine 100 mg capsule,extended 100 mg PO QAM 12/02/19 07/15/20 06/05/20 History release pellets nitroglycerin 0.4 mg sublingual 0.4 mg SUBLINGUAL Q5M PRN tab 12/02/19 07/15/20 06/05/20 History tablet omega-3 acid ethyl esters 1 gram 1 cap PO BID 12/02/19 07/15/20 06/05/20 History capsule omeprazole 40 mg capsule,delayed 40 mg PO DAILY 12/02/19 07/15/20 06/05/20 Hi story release oxycodone 30 mg tablet 30 - 60 mg PO Q4H PRN 12/02/19 07/15/20 06/05/20 History empagliflozin [Jardiance] 25 mg PO DAILY 04/05/20 07/15/20 06/05/20 History Klor-Con M10 10 meq PO DAILY 07/15/20 07/15/20 Unknown History aspirin See Rx Instructions .ROUTE .COMPLEX 07/15/20 07/15/20 Unknown History duloxetine [Cymbalta] 60 mg PO BID 07/15/20 07/15/20 Unknown History insulin degludec [Tresiba 120 unit SUBCUT DAILY 07/15/20 07/15/20 Unknown History FlexTouch U-200] metformin 1,000 mg PO BID 07/15/20 07/15/20 Unknown History pregabalin [Lyrica] 75 mg PO Q8H 07/15/20 07/15/20 Unknown History Allergies Allergy/AdvReac Type Severity Reaction Status Date / Time No Known Allergies Allergy Verified 06/05/20 09:06 PFSH Acute PFSH: Medical History Atherosclerosis of [place] coronary artery of [place] heart without angina pectoris Atypical angina Atypical chest pain The EKG revealed possible ectopic atrial rhythm. Left axis deviation. Poor R wave progression. 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 Hematochezia Hyperlipidemia, mixed Leg pain Neuropathy Osteoarthritis of right AC (acromioclavicular) joint Shoulder impingement Sleep apnea Tear of lateral meniscus of right knee, current Tear of medial meniscus of right knee Type 2 diabetes mellitus Varicose vein of leg Surgical History H/O angioplasty H/O arthroscopy of left knee H/O arthroscopy of right knee With resection of medial and lateral meniscal tears H/O carpal tunnel repair H/O hernia repair H/O laminectomy H/O shoulder surgery History of coronary artery stent placement Family History Father CAD (coronary artery disease) Hypertension Stroke Brother Cancer Grandmother Diabetes Hyperlipidemia Denies family history of Clotting disorder Dementia Psychiatric illness Chronic kidney disease (CKD) Suicide Anesthesia complication Bleeding disorder Family history of premature coronary artery disease Lung disease Social History Smoking and tobacco status: never smoked Alcohol intake: never Lives independently: Yes (with girlfriend) Household members: significant other Marital status: / Current occupational status: retired 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 Vitals/I&O/Wt Last Vital Signs Temp 98.3 F 07/15/20 15:07 Pulse 77 07/15/20 15:07 Resp 13 07/15/20 15:07 BP 108/66 07/15/20 15:07 Pulse Ox 93 07/15/20 15:07 Weight last 48 hrs Weight 104.326 kg Physical Exam Const: COMMON NORMALS: no acute distress and alert EXAM LIMITATIONS: altered mental status GENERAL APPEARANCE: combative HENMT: COMMON NORMALS: normocephalic HEAD & SCALP: normocephalic Eye: COMMON NORMALS: Equal, round and reactive pupils present, EOMs intact bilaterally and no papilledema GENERAL EYE: appearance normal, both eyes and all related structures PUPIL: Yes Equal, round and reactive pupils present DIRECT OPHTHALMOSCOPY: Yes no papilledema Neck/C-Spine: COMMON NORMALS: full ROM, no lymphadenopathy, no JVD and Thyroid normal THYROID: Thyroid normal Lymph: LYMPHATIC: no lymphadenopathy noted Chest: COMMONS NORMALS: normal inspection of the chest Resp: COMMON NORMALS: normal respiratory effort, No retractions, No use of accessory muscles and clear to auscultation bilaterally AUSCULTATION: clear to auscultation bilaterally Cardio: COMMON NORMALS: no JVD, regular rate, regular rhythm, S1 normal heart sound present, S2 normal heart sound present, No gallops present (Cardio), No clicks present (Cardio) and No murmurs present (Cardio) RATE: regular rate RHYTHM: regular rhythm HEART SOUNDS: S1 normal heart sound present and S2 normal heart sound present GI: COMMON NORMALS: Normal to inspection, nondistended, normoactive bowel sounds present, Soft to palpation, non-tender and No hepatosplenomegaly present PALPATION: Yes Soft to palpation and Yes No hepatosplenomegaly present OTHER: Ventral hernia present Extremity: COMMON NORMALS: normal to inspection, full ROM and no pedal edema NARRATIVE EXTREMITY EXAM: Right upper extremity, mild bruising Neuro: COMMON NORMALS: moves all extremities SENSORIUM/ORIENTATION: Yes alert, No oriented to person, No oriented to place, No oriented to time, Yes Orientation impaired and Yes fluctuating sensorium OTHER: Does not follow commands, keeps trying to get out of bed, moves all his upper lower extremities, lift up his head, does not follow commands Psych: COMMON NORMALS: cooperative THOUGHT PROCESS: confused Urinary Catheter Management^: Calle: Cath Placed During This Visit: yes Reason for Continuing Indwelling Catheter: Not indwelling catheter Urinary Catheter Date of Insertion: 07/15/20 Urinary Catheter Time of Insertion: 11:01 Data : 07/15/20 10:12 07/15/20 10:12 A&P Assessment and plan (1) Altered mental status: -CT of the head no intracranial bleed, cerebral and cerebellar atrophy, that is more than is considered for his age -CT of the head multifocal areas of mild to severe foraminal and central stenosis -Chest x-ray no focal pneumonia -White blood cell count 8.8, hemoglobin 11.6, platelet count 175 -pH 7.37, PCO2 45.5, PO2 50.2 -Lactic acid 3.1, his UA within normal limits -EKG no acute ST-T wave changes -Urine toxicology positive for opiates -Patient currently is trying to get up out of bed, does not follow commands, states that he wants to get out of bed, moving all extremities, lifting up his neck, pupils are pinpoint -In the emergency room blood pressure 147/79, pulse 90, respiratory rate 17, O2 sats 96 on room air -Altered mental status etiology unclear at this point: -We will start Rocephin for possible UTI -Given patient's recent hip surgery, olya removal, and fall, will do a CT of the right hip -Given patient's recent hip surgery, will do a CT angiogram of the chest to rule out pulmonary embolism -There are concerns for possible stroke, patient really does not follow neurologic exam, is already on aspirin/Plavix/statin, continue, echo, carotid ultrasound, IV fluids, neurochecks, aspiration precautions, seizure precautions, allow for permissive hypertension -Follow urine cultures, blood cultures -Certainly opiate overdose and polypharmacy with his Lyrica, Cymbalta, morphine, Percocet are a significant consideration, currently no respiratory depression, pupils are pinpoint, will hold medications, continue telemetry monitoring, monitor respiratory status closely, will call pharmacy tomorrow for pill count -Full code -Lovenox for DVT prophylaxis Status: Acute (2) Fall: Status: Acute Attestations Medical Necessity Statement*: Patient requires hospitalization, inpatient, greater than 2 minutes, for altered mental status Coding Level of Care Code Acute Regulatory Leader for Vaughn Solis Diagnoses Altered mental status R41.82 Fall W19.XXXA
--- NOTE | 2020-07-15 15:43 | USCV_ITS ---
Giovany Garcia Age: 65 Gender: M : 1955 Exam Date: 07/15/2020 16:22 Ordering Phys: Christopher Chandler MD Technologist: Dee Dee Cole Exam Location: [facility] – [place] Indication: SWELLING HISTORY: Lower extremity swelling. PROCEDURES: Venous duplex imaging was performed in bilateral lower extremities. The following venous structures were evaluated: common femoral vein, profunda vein, proximal portion of the greater saphenous vein, superficial femoral vein, and the popliteal vein. In addition, the posterior tibial and peroneal trunk were evaluated. FINDINGS: Normal 2-D Doppler and augmentation and compressibility throughout the lower extremity venous structures. Additional imaging through the proximal calf veins also reveals no thrombus. Limited evaluation of the greater saphenous vein is patent with no thrombus. CONCLUSIONS No DVT bilateral lower extremities. Dr. Agustina Blanco DO (Electronically Signed) Final Date: 16 July 2020 08:23 S
--- NOTE | 2020-07-15 15:43 | CTR_ITS ---
PROCEDURE INFORMATION: Exam: CT Angiography Chest With Contrast Exam date and time: 07/15/2020 4:39 PM Age: 65 years old Clinical indication: Injury or trauma; Initial encounter; Blunt trauma (contusions or hematomas); Prior surgery; Surgery date: 6+ months; Surgery type: Stent, shoulder; Patient HX: PT was found on floor by family - ? fall - non compliant best images possible. Recent hip sugery; Additional info: Pe TECHNIQUE: Imaging protocol: Computed tomographic angiography of the chest with intravenous contrast. 3D rendering (Not supervised by radiologist): MIP and/or 3D reconstructed images were created by the technologist. Radiation optimization: All CT scans at this facility use at least one of these dose optimization techniques: automated exposure control; mA and/or kV adjustment per patient size (includes targeted exams where dose is matched to clinical indication); or iterative reconstruction. Contrast material: OMNI 350; Contrast volume: 95 ml; Contrast route: INTRAVENOUS (IV); COMPARISON: CTA Chest-Pulmonary Emb [id number] 04/05/2014 3:44 PM RADIATION DOSE METRICS: Total DLP (mGy-cm): 644.45 FINDINGS: Pulmonary arteries: The exam is limited by motion artifact with some streaky hypodensities in the lower lobe pulmonary artery branches compatible with motion artifact. No pulmonary embolus is identified. Aorta: Unremarkable. No aortic aneurysm. No aortic dissection. Lungs: There are moderate emphysematous changes. There is some mild ground-glass opacity in the lungs compatible with motion artifact versus atelectasis. No lobar consolidation. Pleural space: Unremarkable. No pneumothorax. No pleural effusion. Heart: Unremarkable. No cardiomegaly. No pericardial effusion. Mediastinal space: A small hiatal hernia is present. Lymph nodes: Unremarkable. No enlarged lymph nodes. Kidneys and ureters: There is a simple cyst in the right kidney. No follow-up is necessary. Bones/joints: There is a nondisplaced fracture of the lateral aspect of the left 10th rib. There is mild dextroscoliosis. Soft tissues: Unremarkable. CT/CT angio chest PE protcl [id number] IMPRESSION: 1. No pulmonary embolus is identified. 2. There is a nondisplaced fracture of the lateral aspect of the left 10th rib. COMMENTS: Consistent with the [employer]'s Incidental Findings Committee white paper (J Am Kurt Radiol 2018): Any incidental renal lesion less than 1.0 cm or classified as too small to characterize, or any incidental cystic renal lesion characterized as simple-appearing, is likely benign. No follow-up imaging is recommended for these lesions per consensus recommendations based on imaging criteria. Radiation Dose CTDIVOL = (mGy): DLP = 644.45 (mGy-cm)
--- NOTE | 2020-07-15 15:44 | CTR_ITS ---
PROCEDURE INFORMATION: Exam: CT Right Lower Extremity Without Contrast, Hip Exam date and time: 07/15/2020 4:39 PM Age: 65 years old Clinical indication: Injury or trauma; Initial encounter; Blunt trauma; Hip; Right; Prior surgery; Surgery date: <1 month; Surgery type: Alexander removal; Patient HX: PT was found on floor by family - ? fall - non compliant best images possible; Additional info: Recent alexander removal / fall TECHNIQUE: Imaging protocol: CT of the Right lower extremity without contrast was performed. Exam focused on the hip. Radiation optimization: All CT scans at this facility use at least one of these dose optimization techniques: automated exposure control; mA and/or kV adjustment per patient size (includes targeted exams where dose is matched to clinical indication); or iterative reconstruction. COMPARISON: CT hip RT wo con* [id number] 03/19/2020 8:42 AM RADIATION DOSE METRICS: Total DLP (mGy-cm): 1567.5 FINDINGS: Bones/joints: There is severe osteopenia. Postoperative changes of recent removal of an intramedullary alexander and interlocking screw fixation is noted with obvious screw tracks. There is a subcapital fracture of the right femoral neck with angular deformity and abundant bony sclerosis compatible with either a new superimposed on old fracture or nonunion. No bridging bone. No additional acute fracture is identified in the visualized right pelvis. No dislocation. No avascular necrosis. Soft tissues: Superficial skin nancy are present. There is subcutaneous edema compatible with a recent hardware removal. CT/CT hip RT wo con* [id number] IMPRESSION: There is a subcapital fracture of the right femoral neck with angular deformity and abundant bony sclerosis compatible with either a new superimposed on old fracture or nonunion. No bridging bone. Radiation Dose CTDIVOL = (mGy): DLP = 1567.5 (mGy-cm)
[2020-07-15] MEDS: cefTRIAXone 1,000 MG in sodium chloride 0.9% (plus) 50 ML 100 MG IV (16:33)
[2020-07-15] MEDS: enoxaparin 40 mg/0.4 mL Syringe SUBCUT (16:33)
[2020-07-15] MEDS: sodium chloride 0.9% 1,000 ML 100 ML IV (16:33)
[2020-07-15] MEDS: iohexol 350 mg/mL 100 mL Btl IV (17:02)
[2020-07-15 17:16] LABS: Glucose Point of Care 150 mg/dL (70-110)
--- NOTE | 2020-07-15 17:16 | PC.NURSE ---
Rcvd call from Kelly Sims stating Zack Whitmore is here to visit patient. Patient has AMS and unable to communicate who he wants his visitor to be or any health history.
[2020-07-15 17:29] LABS: Estmated Average Glucose 157; Hemoglobin A1C 7.1 % (4.0-6.0)
[2020-07-15 17:35] LABS: Erythrocyte Sedimentation Rate 26 mm/hr (0-10)
[2020-07-15 18:03] LABS: NT Pro B Type Natriuretic Pept 55 pg/mL (0-125); Procalcitonin 0.05 ng/mL (0-0.5); Thyroid Stimulating Hormone 0.55 uIU/mL (0.27-4.20)
[2020-07-15 18:14] LABS: C Reactive Protein 3.8 mg/L (0.0-4.9); Creatine Phosphokinase 177 U/L (39-308)
[2020-07-15 18:19] LABS: Acetaminophen < 5.0 ug/mL (10-30); Alcohol Level < 10 mg/dL (0-10); Salicylate < 0.3 mg/dL (3-10)
[2020-07-15 21:09] LABS: Glucose Point of Care 82 mg/dL (70-110)
[2020-07-15] MEDS: OLANZapine 5 mg TABLET PO (22:36)
[2020-07-16] VITALS (9 sets, daily range): BP systolic 106–120; BP diastolic 33–71; PULSE 68–81; RESP 16–18; TEMP 36.1–36.8; O2SAT 96–98
[2020-07-16] MEDS: morphine 4 mg/mL SDV 1 mL 2 MG IVP (00:35)
[2020-07-16] MEDS: morphine 4 mg/mL SDV 1 mL IVP ×2 (04:08→13:36)
[2020-07-16 04:57] LABS: Chol HDL Ratio 3.34 mg/dL (1.0-5.00); Cholesterol 127 mg/dL (0-200); HDL Cholesterol 38 mg/dL (60-100); LDL Cholesterol Calculated 66 mg/dL (50-129); LDL HDL Ratio 1.74 RATIO (0.00-3.22); Triglycerides 117 mg/dL (0-150)
[2020-07-16 05:24] LABS: Alanine Aminotransferase 20 U/L (0-41); Albumin Level 3.8 g/dL (3.5-5.2); Alkaline Phosphatase 59 IU/L (40-130); Anion Gap 12.7 (5-19); Aspartate Amino Transferase 20 U/L (0-40); Blood Urea Nitrogen 11 mg/dL (8-23); Carbon Dioxide 26 mmol/L (22-29); Chloride 106 mmol/L (98-107); Globulin 2.6 g/dL (1.3-4.6); Glomerular Filtration Rate 134.4 mL/min (90-130); Glucose 87 mg/dL (65-115); Osmolality Calculated 287 mOsm/kg (285-295); Phosphorus 3.3 mg/dL (2.5-4.5); Potassium 3.7 mmol/L (3.5-5.1); Sodium 141 mmol/L (136-145); Total Bilirubin 0.4 mg/dL (0.15-1.2); Total Protein 6.4 g/dL (6.6-8.7)
--- NOTE | 2020-07-16 05:52 | PC.NURSE ---
At approximately 21:00 the patient mental status became more alert and oriented. Patient expressed his desire to stand up stating that he needed to urinate. It was explained to him that he had a catheter in place and he did not have to stand to urinate. Patient stated that he knew he had a catheter but felt that standing would help him drain his bladder. Patient then expressed his desire to have said catheter removed due to the fact that he is capable to urinate on his own. He also stated that he had no desire to have his fluids running because that made him have to urinate more. It was explained to the patient that fluids where being ran to maintain his IV access. Patient again refused to allow his fluids to be hooked up after being unhooked to use the toilet. It was also at this time the patient expressed is desire to have his SCD's removed. Patient was informed that we would speak it the doctor about the patients wishes for catheter removal. Patient's mental status was assessed with him being alert and oriented x 3. Dr. Giles was contacted and informed of the situation regarding the patients wanting his catheter removed and the patient being able to use the urinal. An order was obtained and the catheter was removed.
--- NOTE | 2020-07-16 06:00 | USCV_ITS ---
Giovany Garcia Age: 65 Gender: M : 1955 Exam Date: 07/16/2020 13:55 Ordering Phys: Christopher Chandler MD Technologist: Antonino Layton [place]am [place] [facility] [place]ication: stroke BP: 124 / 73 HR: 79 Rhythm: Sinus Technical Quality: Adequate MEASUREMENTS (Male / Female) Normal Values 2D ECHO LVOT Diameter 2.1 cm LV Ejection Fraction MOD 2C 61.8 % LV Ejection Fraction 2C AL 62.3 % LA Diameter 3.7 cm LA Width 4.4 cm LA Height 4.8 cm RA Width 4.0 cm RA Height 4.5 cm Aorta at Sinotubular Diameter 0.9 cm M-MODE LV Diastolic Diameter MM 4.7 cm 4.2 - 5.9 / 3.9 - 5.3 cm LV Systolic Diameter MM 2.5 cm LV Ejection Fraction MM Teich 78.2 % IVS Diastolic Thickness MM 1.0 cm 0.6 - 1.0 / 0.6 - 0.9 cm IVS Systolic Thickness MM 1.2 cm LVPW Diastolic Thickness MM 0.9 cm 0.6 - 1.0 / 0.6 - 0.9 cm LVPW Systolic Thickness MM 1.5 cm RV Diastolic Diameter MM 1.8 cm Aortic Annulus Diameter 3.8 cm LA Ao Ratio MM 1.0 MV E Point Septal Separation 0.4 cm DOPPLER AV Peak Velocity 130.0 cm/s LVOT Peak Velocity 98.0 cm/s AV Area Cont Eq vti 2.5 cm squared AV Area Cont Eq pk 2.6 cm squared MV Area PHT 5.0 cm squared Mitral E to A Ratio 0.9 MV E' Velocity 9.0 cm/s Mitral E to MV E' Ratio 7.8 Mitral E to LV E' Lateral Ratio 8.3 Mitral E to LV E' Septal Ratio 7.4 TR Peak Velocity 141.0 cm/s TR Peak Gradient 8.0 mmHg TV Peak E Velocity 89.0 cm/s Right Atrial Pressure 3.0 mmHg Pulmonary Artery Systolic Pressu 11.0 mmHg FINDINGS Left Ventricle Normal left ventricular size, systolic function and wall thickness, with no regional wall motion abnormalities. Left ventricular ejection fraction is estimated at 65 %. Normal diastolic function. Right Ventricle Normal right ventricular size and systolic function. Right ventricular systolic pressure 11 mmHg. Right Atrium Normal right atrial size. Left Atrium Normal left atrial size. Mitral Valve Structurally normal mitral valve. No mitral valve stenosis. No significant mitral valve regurgitation. Aortic Valve Structurally normal trileaflet aortic valve. No aortic valve stenosis. No aortic valve regurgitation. Tricuspid Valve Structurally normal tricuspid valve. Trace tricuspid valve regurgitation. Pulmonic Valve Pulmonic valve not well visualized. Pericardium No pericardial effusion. Aorta Normal size aortic root and proximal ascending aorta. CONCLUSIONS 1. Normal left ventricular size, systolic function and wall thickness, with no regional wall motion abnormalities. Left ventricular ejection fraction is estimated at 65 %. Normal diastolic function. 2. Normal right ventricular size and systolic function. 3. Right ventricular systolic pressure 11 mmHg. 4. No significant valvular abnormality. 5. When compared to previous echocardiogram dated 06/07/2016, there has been no significant change. Kandace Cervantes MD (Electronically Signed) Final Date: 16 July 2020 17:57 S
--- NOTE | 2020-07-16 06:00 | USCV_ITS ---
Giovany Garcia Age: 65 Gender: M : 1955 Exam Date: 07/16/2020 14:04 Ordering Phys: Christopher Chandler MD Technologist: Antonino Layton Exam Location: [facility] [place] Indication: stroke Risk Factors: Previous Vascular Surgery: Right Brachial BP: / Left Brachial BP: / Right Left Velocity (cm/s) Spectral Plaque Velocity (cm/s) Spectral Plaque Syst/Diast Broadening Syst/Diast Broadening 93.70/ 15.40 Prox CCA 74.10 / 11.70 46.70/ 9.20 Mid CCA 74.10 / 13.30 55.20/ 13.80 Hetro Distal CCA 90.40 / 15.60 Hetro 56.40/ 12.60 Hetro Prox ICA 45.30 / 6.60 Bran 46.70/ 9.20 Mid ICA 79.90 / 13.90 47.50/ 10.40 Distal ICA 78.10 / 17.70 77.20 Hetro ECA 140.60 Hetro 0.60 ICA/CCA 0.88 Antegrade Vertebral Antegrade 37.10/ 3.70 cm/s 65.10/ 15.80 cm/s Tri Subclavian Tri 65.30 114.3 0 FINDINGS Comparison: none available. No significant elevation of systolic or diastolic velocities. Waveforms are normal. Mixture of calcified and noncalcified plaque in the bifurcations. CONCLUSIONS Bilateral ICA stenosis less than 50%. Mild atherosclerosis. Dr. Agustina Blanco DO (Electronically Signed) Final Date: 17 July 2020 16:00 S
[2020-07-16 06:51] LABS: Glucose Point of Care 89 mg/dL (70-110)
--- NOTE | 2020-07-16 08:02 | PC.NURSE ---
Patient refusing monitoring analyst, SCD's and IV fluids. states, I don't need any of that I need pain medication. Dr. Reyes notified.
[2020-07-16] MEDS: clopidogrel 75 mg Tablet PO (08:32)
[2020-07-16] MEDS: ezetimibe 10 mg Tablet PO (08:32)
[2020-07-16] MEDS: omega-3 fatty acids 1,000 mg Capsule 1000 MG PO (08:32)
[2020-07-16] MEDS: pantoprazole DR 40 mg Tablet PO (08:33)
[2020-07-16] MEDS: aspirin 81 mg EC Tablet PO (08:33)
[2020-07-16] MEDS: atorvastatin 40 mg Tablet PO (08:33)
--- NOTE | 2020-07-16 11:25 | PC.NURSE ---
patient requesting food and pain pills. field underwriter notified Dr Fuentes
[2020-07-16 11:32] LABS: Glucose Point of Care 106 mg/dL (70-110)
--- NOTE | 2020-07-16 13:26 | P.DS_ITS ---
Discharge Providers Date of Admission: 07/15/20 14:40 Date of Discharge: July 16, 2020 Attending Provider at Admission: Christopher Chandler MD Attending Provider at Discharge: Amy Fuentes MD Consults: None Primary Care Provider: Carson Raman Diagnoses at Discharge Discharge Diagnosis (1) Altered mental status: Status: Acute Problem details: -likely due to over-medication, particularly with high doses of narcotics. He admits that he is unaware of his limits when it comes to taking his narcotics. He has had increasing pain requirement secondary to issues with his right hip since initial surgery. -Mental status has returned to baseline, he is currently alert and oriented x3, able to recall events leading to fall and hospital visit -Narcotics have been on hold; resume with caution and will require supervision of dispensation of these medications on return home -Infectious work-up negative including UA, chest x-ray -Lactic acidosis likely reactive -Noted hypoxia on ABG likely secondary to decreased respiratory drive from narcotics -Urine drug screen positive for opiates -No PE on CTA Qualifiers: Altered mental status type: disorientation Qualified Code(s): R41.0 - Disorientation, unspecified (2) Fall: Status: Acute Problem details: -Tripped and fell at home; reports repeated falls at home and intermittently uses cane for gait stability. Had recent hardware removal from right hip done by Dr. Tha Dozier at [facility] in [place] approximately 2 to 3 we eks ago. There is been discussion about total arthroplasty. CT scan of the right hip shows subcapital fracture of right femoral neck with angular deformity which is likely not new and more evident following hardware removal. Will recommend that patient be [id number] until follow-up appointment tomorrow at [facility] -Had initial closed reduction of right intertrochanteric hip fracture with long IM nailing by Dr. 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 Pain control as needed -mild normocytic anemia; stable Hg Reason for Visit Reason for Visit: AMS; FOUND ON FLOOR Hospital Course Hospital Course: Patient was admitted to the medical surgical floor and was initially quite disoriented and confused. He was kept n.p.o. and secondary to suspicion that altered mental status was related to narcotics, his pain medications were held. Overnight his mental status has improved and he is currently alert and oriented x3, recalls events preceding hospital admission. In light of mechanical fall that he had at home and complains of right hip pain he had a CT scan of the right hip done with noted evidence of a subcapital fracture of the right femoral neck with angular deformity which per my discussion with radiology is likely not acute and more evident following her recent hardware removal. Patient has established care with orthopedic surgery, Dr. Tha Dozier at [facility] and is scheduled for follow-up visit tomorrow 07/17 at 9 AM. CD with imaging studies has been provided and have called and left a message for Dr. Dozier relaying imaging information. Family has confirmed that they will be transporting patient to and from the appointment tomorrow. He is to be [id number] until he is seen by the specialist tomorrow. There has been discussion about need for hip arthroplasty which is pending scheduling. He has been cautioned on conservative use of narcotics particularly in light of the high doses that he is taking. He states that his narcotics are prescribed by Dr. Fam. Is reluctant to have any further procedures here in light of his complications with his original right hip surgery. I have called and discussed patient's clinical status with his family and they are agreeable to the plan. Discharge Summary: -Patient to follow-up tomorrow at [facility] ([address] [place] [address], [id number]) at 10:00 a.m. -Patient to follow-up with his primary care provider within 1 week Physical Exam Const: COMMON NORMALS: no acute distress and patient oriented x3 GENERAL APPEARANCE: cooperative and comfortable ORIENTATION/CONSCIOUSNESS: Yes awake HENMT: COMMON NORMALS: normocephalic, atraumatic, hearing grossly normal bilaterally and moist oral mucous membranes HEAD & SCALP: normocephalic and atraumatic Eye: COMMON NORMALS: Equal, round and reactive pupils present, EOMs intact bilaterally and conjunctivae normal CONJUNCTIVA: Yes conjunctivae normal PUPIL: Yes Equal, round and reactive pupils present Neck/C-Spine: COMMON NORMALS: full ROM GENERAL: Yes normal visual inspection and Yes trachea midline Resp: COMMON NORMALS: normal respiratory effort, No retractions, No use of accessory muscles and clear to auscultation bilaterally EFFORT & INSPECTION: Yes able to speak in complete sentences, Yes symmetric chest movement and No tachypneic AUSCULTATION: clear to auscultation bilaterally Cardio: COMMON NORMALS: regular rate, regular rhythm, S1 normal heart sound present, S2 normal heart sound present and No murmurs present (Cardio) RATE: regular rate RHYTHM: regular rhythm HEART SOUNDS: S1 normal heart sound present and S2 normal heart sound present GI: COMMON NORMALS: Normal to inspection, nondistended, normoactive bowel sounds present, Soft to palpation and non-tender INSPECTION: Yes central obesity PALPATION: Yes Soft to palpation Extremity: COMMON NORMALS: normal to inspection and no pedal edema NARRATIVE EXTREMITY EXAM: -Clean, dry, intact dressing over right lateral hip -BEATRIZ wrap over right knee -Limited ROM of right hip Neuro: COMMON NORMALS: patient oriented x3, moves all extremities, no focal motor deficits, no sensory deficits noted and gait normal Psych: COMMON NORMALS: mental status grossly normal, Normal thought process present, cooperative, normal affect and speech normal SPEECH: Yes normal speech THOUGHT PROCESS: Normal thought process present Skin: COMMON NORMALS: no jaundice, no petechiae and no mottling NARRATIVE SKIN EXAM: -Scattered bruising and skin tears on upper extremities Urinary Catheter Management^: Calle: Cath Placed During This Visit: yes, but has since been removed by the nurse Reason for Continuing Indwelling Catheter: Decision to DC Catheter Urinary Catheter Date of Insertion: 07/15/20 Urinary Catheter Time of Insertion: 11:01 Date Urinary Catheter Removed: 07/15/20 Time Urinary Catheter Discontinued: 23:43 Discharge Data Data Completed and Pending: Completed Studies During Hospitalization Category Date Time Status CT angio chest PE protcl [id number] Stat Cat Scan 07/15/20 15:[address] cervical spin wo con* [id number] Urge nt Cat Scan 07/15/20 09:[address] head wo con* [id number] Stat Cat Scan 07/15/20 09:[address] hip RT wo con* [id number] Stat Cat Scan 07/15/20 15:44 Completed XR chest 1V michael ble [id number] Stat Exams 07/15/20 09:24 [place] [id number] Routin e Ultrasound 07/15/20 15:43 Completed Pending at discharge Category Date Time Status Blood Culture Rou lisa Lab 07/15/20 10:12 Results Comprehensive Met abolic Panel AM LA BS Lab 07/17/20 04:00 Ordered Comprehensive Met abolic Panel AM LA BS Lab 07/18/20 04:00 Ordered Magnesium AM LABS Lab 07/17/20 04:00 Ordered Magnesium AM LABS Lab 07/18/20 04:00 Ordered Phosphorus AM LAB S Lab 07/17/20 04:00 Ordered Phosphorus AM LAB S Lab 07/18/20 04:00 Ordered Urine Culture Sta t Lab 07/15/20 16:05 Received CV carotid duplex BI* [id number] Routine Ultrasound 07/16/20 06:00 Ordered CV echo complete* [id number] Routine Ultrasound 07/16/20 06:00 Ordered Labs from last 24 hours 07/16/20 07/16/20 07/16/20 11:01 06:40 04:12 ESR Sodium Potassium Chloride Carbon Dioxide Anion Gap BUN Creatinine GFR Calculation Glucose POC Glucose 106 89 Estimat Average Gl ucose Hemoglobin A1c Calculated Osmolal ity Lactic Acid (Sepsi s) Calcium Phosphorus Magnesium Total Bilirubin AST ALT Alkaline Phosphata se Creatine Kinase C-Reactive Protein NT-Pro-B Natriuret Pep Total Protein Albumin Globulin Triglycerides 117 Cholesterol 127 LDL Cholesterol, C alc 66 HDL Cholesterol 38 L LDL/HDL Ratio 1.74 Cholesterol/HDL Ra mann 3.34 Procalcitonin TSH Salicylates Acetaminophen Ethyl Alcohol 07/16/20 07/15/20 07/15/20 04:12 21:06 17:08 ESR Sodium 141 Potassium 3.7 Chloride 106 Carbon Dioxide 26 Anion Gap 12.7 BUN 11 Creatinine 0.6 L GFR Calculation 134.4 H Glucose 87 POC Glucose 82 150 Estimat Average Gl ucose Hemoglobin A1c Calculated Osmolal ity 287 Lactic Acid (Sepsi s) Calcium 9.0 Phosphorus 3.3 Magnesium 2.0 Total Bilirubin 0.4 AST 20 ALT 20 Alkaline Phosphata se 59 Creatine Kinase C-Reactive Protein NT-Pro-B Natriuret Pep Total Protein 6.4 L Albumin 3.8 Globulin 2.6 Triglycerides Cholesterol LDL Cholesterol, C alc HDL Cholesterol LDL/HDL Ratio Cholesterol/HDL Ra mann Procalcitonin TSH Salicylates Acetaminophen Ethyl Alcohol 07/15/20 07/15/20 07/15/20 16:35 16:35 16:35 ESR 26 H Sodium Potassium Chloride Carbon Dioxide Anion Gap BUN Creatinine GFR Calculation Glucose POC Glucose Estimat Average Gl ucose 157 Hemoglobin A1c 7.1 H Calculated Osmolal ity Lactic Acid (Sepsi s) Calcium Phosphorus Magnesium Total Bilirubin AST ALT Alkaline Phosphata se Creatine Kinase 177 C-Reactive Protein 3.8 NT-Pro-B Natriuret Pep 55 Total Protein Albumin Globulin Triglycerides Cholesterol LDL Cholesterol, C alc HDL Cholesterol LDL/HDL Ratio Cholesterol/HDL Ra mann Procalcitonin 0.05 TSH 0.55 Salicylates < 0.3 L Acetaminophen < 5.0 L Ethyl Alcohol < 10 07/15/20 13:19 ESR Sodium Potassium Chloride Carbon Dioxide Anion Gap BUN Creatinine GFR Calculation Glucose POC Glucose Estimat Average Gl ucose Hemoglobin A1c Calculated Osmolal ity Lactic Acid (Sepsi s) 3.1 H Calcium Phosphorus Magnesium Total Bilirubin AST ALT Alkaline Phosphata se Creatine Kinase C-Reactive Protein NT-Pro-B Natriuret Pep Total Protein Albumin Globulin Triglycerides Cholesterol LDL Cholesterol, C alc HDL Cholesterol LDL/HDL Ratio Cholesterol/HDL Ra mann Procalcitonin TSH Salicylates Acetaminophen Ethyl Alcohol Vitals: Last Vital Signs Temp 97.6 F 07/16/20 11:42 Pulse 73 07/16/20 11:42 Resp 17 07/16/20 11:42 BP 120/71 07/16/20 11:42 Pulse Ox 98 07/16/20 11:42 Discharge Plan Discharge Patient Disposition: Home Condition: Stable Prescriptions: Continued nitroglycerin [Nitrostat] 0.4 mg tablet, sublingual 0.4 mg SUBLINGUAL Q5M PRN (Reason: Chest Pain) RF: 0 clopidogrel [Plavix] 75 mg tablet 75 mg PO DAILY RF: 0 lisinopril 10 mg tablet 10 mg PO DAILY RF: 0 omeprazole 40 mg capsule,delayed release(DR/EC) 40 mg PO DAILY RF: 0 gabapentin [Neurontin] 300 mg capsule 300 mg PO QID RF: 0 ezetimibe [Zetia] 10 mg tablet 10 mg PO DAILY RF: 0 omega-3 acid ethyl esters [Lovaza] 1 gram capsule 1 cap PO BID RF: 0 morphine 100 mg capsule,extend.release pellets 100 mg PO QAM RF: 0 metformin 500 mg Tablet Extended Release 24 Hr 1,000 mg PO BID RF: 0 Lyrica 75 mg Capsule 75 mg PO Q8H RF: 0 Tresiba FlexTouch U-200 200 unit/mL (3 mL) insulin pen 120 unit SUBCUT DAILY RF: 0 Klor-Con M10 10 mEq tablet,ER particles/crystals 10 meq PO DAILY RF: 0 aspirin 325 mg Tablet See Rx Instructions .ROUTE .COMPLEX RF: 0 Cymbalta 60 mg Capsule,Delayed Release(Dr/Ec) 60 mg PO BID RF: 0 Jardiance 25 mg tablet 25 mg PO DAILY RF: 0 Changed oxycodone 30 mg tablet 30 mg PO Q4H PRN (Reason: Pain) Qty: 0 RF: 0 Discharge Orders: Discharge Order (Routine); Ordered 07/16/20 Ordered By: Amy Fuentes Referrals: Carson Raman [Primary Care Provider] - 07/20/20 2:20 am (ThursdayJuly [address] Raman's office) Tha Dozier MD [Referring] - 07/17/20 9:00 am Discharge Diet: Cardiac and Diabetic Discharge Activity: Limit activity as instructed Activity Restrictions/Additional Instructions: -Please note that you are to be [id number] on the right until follow-up appointment tomorrow orthopedic surgery at [address] [place] [address] in [place], [place], [facility]. Discharge Attestations Time Spent in Discharge Care*: greater than 30 min Specific Discharge Activities: Specific discharge activities: educating patient, educating and/or supporting family/caregiver, discussing with pcp/other providers (called Dr. 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
[2020-07-16] MEDS: oxyCODONE ER 10 MG, oxyCODONE ER 20 MG 30 MG PO (14:52)
[2020-07-16] MEDS: enoxaparin 40 mg/0.4 mL Syringe SUBCUT (14:52)
--- NOTE | 2020-07-16 15:31 | PC.NURSE ---
discharge instructions provided to patient, verbalized understanding and denies further questions or concerns. Packet of discharge instructions and CD with imaging given to patient to take to orthopedic follow up appointment, verbalized understanding.
--- NOTE | 2020-07-16 16:10 | PC.NURSE ---
Patient belongings wallet, pills, money ($1000) X10 $100 dollar bills returned to patient with witness Kunal Pabon RN.
== END 2020-07-16 16:13 | disposition home or self-care (01) ==
LOC: ER 13:54 → MEDSURG 15:00
PROVIDERS: Emergency Medicine; Admitting Provider Family Medicine; PCP Family Medicine; Visit Provider Family Medicine
DX: R41.82 Altered mental status, unspecified (principal); M25.551 Pain in right hip; M54.9 Dorsalgia, unspecified; G89.29 Other chronic pain; D64.9 Anemia, unspecified; I25.10 Atherosclerotic heart disease of native coronary artery without angina pectoris; I10 Essential (primary) hypertension; E78.2 Mixed hyperlipidemia; E11.9 Type 2 diabetes mellitus without complications; Z95.5 Presence of coronary angioplasty implant and graft; Z79.82 Long term (current) use of aspirin; Z79.891 Long term (current) use of opiate analgesic; Z79.02 Long term (current) use of antithrombotics/antiplatelets; Z79.4 Long term (current) use of insulin; E66.9 Obesity, unspecified; Z68.31 Body mass index [BMI] 31.0-31.9, adult; Z98.890 Other specified postprocedural states; I65.23 Occlusion and stenosis of bilateral carotid arteries
CPT/HCPCS: 12345; 36415; 36416; 36600; 51702; 70450; 71045; 71275; 72125; 73700; 80053; 80061; 80306; 80307; 81003; 82140; 82550; 82803; 82962; 83036; 83605; 83735; 83880; 84100; 84145; 84443; 85025; 85610; 85651; 86140; 87040; 87086; 93005; 93306; 93880; 93970; 96361; 96365; 96366; 96372; 96375; 99283; 99285; G0378; J0696; J1630; J1650; J1815; J1953; J2060; J2270; J7030; Q9967

== ENCOUNTER 2021-03-04 13:46 | Outpatient (CLI) | payer MEDICARE, MEDICAID, SELFPAY | END 2021-03-04 13:47 | disposition home or self-care (01) | LOC: SPT 13:47 | PROVIDERS: PCP Family Medicine; Visit Provider Podiatrist Foot & Ankle Surgery | DX: Z46.89 Encounter for fitting and adjustment of other specified devices (principal); S93.322D Subluxation of tarsometatarsal joint of left foot, subsequent encounter; X58.XXXD Exposure to other specified factors, subsequent encounter | CPT/HCPCS: 97760; L4361 ==

== ENCOUNTER 2021-04-22 08:31 | Inpatient (IN) | payer MEDICARE, MEDICAID, SELFPAY ==
[2021-04-22] VITALS (37 sets, daily range): BP systolic 79–141; BP diastolic 48–78; PULSE 82–104; RESP 10–24; TEMP 36.8–37.2; O2SAT 82–98; BMI 28.5
--- NOTE | 2021-04-22 08:36 | ED_ITS ---
HPI - General Adult General: Chief complaint: Altered Mental Status Stated complaint: LOW BP/ TEMP/ NOT FEELING WELL Time Seen by Provider: 04/22/21 08:36 History of Present Illness: HPI narrative: 65-year-old male presents emergency room mildly altered mental status found confused by family member today his last known well time is unknown there is currently no family here to assist. He denies chest pain he is complaining of some low back pain and stating he has to urinate. Tells me he is not usually on any oxygen. Onset (ago): unknown Severity: moderate Relieving factors: none Exacerbating factors: none Associated symptoms: Reports confusion, decreased appetite and malaise; Deny chest pain, cough, diaphoresis, dyspnea, fevers/chills, headache(s), nausea, rash, palpitations, seizures, short of breath, syncope, vomiting or weakness Treatments prior to arrival: none Review of Systems Const: Reports: malaise; Denies: diaphoresis ENMT: Denies: throat pain, ear or mastoid pain, nasal discharge or nasal congestion Card: Denies: chest pain, palpitations or syncope Resp: Denies: dyspnea GI: Denies: nausea or vomiting : Denies: flank pain, dysuria, urinary frequency or urinary urgency Skin/Breast: Denies: rash Neuro: Reports: confusion; Denies: headache(s) PFSH ED PFSH: Medical History 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 Left axis deviation. Poor R wave progression. 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 Hematochezia Hyperlipidemia, mixed Leg pain Neuropathy Osteoarthritis of right AC (acromioclavicular) joint Shoulder impingement Sleep apnea Tear of lateral meniscus of right knee, current Tear of medial meniscus of right knee Type 2 diabetes mellitus Varicose vein of leg Surgical History H/O angioplasty H/O arthroscopy of left knee H/O arthroscopy of right knee With resection of medial and lateral meniscal tears H/O carpal tunnel repair H/O hernia repair H/O laminectomy H/O shoulder surgery History of coronary artery stent placement Family History Father CAD (coronary artery disease) Hypertension Stroke Brother Cancer Grandmother Diabetes Hyperlipidemia Denies family history of Clotting disorder Dementia Psychiatric illness Chronic kidney disease (CKD) Suicide Anesthesia complication Bleeding disorder Family history of premature coronary artery disease Lung disease Social History Smoking and tobacco status: never smoked Alcohol intake: never Lives independently: Yes (with girlfriend) Household members: significant other Marital status: / Current occupational status: retired 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 Physical Exam Const: COMMON NORMALS: no acute distress GENERAL APPEARANCE: cooperative ORIENTATION/CONSCIOUSNESS: Yes oriented to person, Yes oriented to place and Yes oriented to time HENMT: COMMON NORMALS: normocephalic, atraumatic, hearing grossly normal bilaterally, external ears normal, EAC's normal, TM's normal bilaterally, Normal nasal mucous membranes and turbinates present, moist oral mucous membranes and oropharynx normal HEAD & SCALP: normocephalic and atraumatic NOSE: Normal nasal mucous membranes and turbinates present EXTERNAL EAR: Yes external ears normal EXTERNAL AUDITORY CANAL: EAC's normal TYMPANIC MEMBRANE: TM's normal bilaterally Eye: COMMON NORMALS: Equal, round and reactive pupils present, EOMs intact bilaterally, conjunctivae normal and no scleral icterus CONJUNCTIVA: Yes conjunctivae normal PUPIL: Yes Equal, round and reactive pupils present Neck/C-Spine: COMMON NORMALS: no JVD Resp: COMMON NORMALS: normal respiratory effort, No retractions, No use of accessory muscles and clear to auscultation bilaterally AUSCULTATION: clear to auscultation bilaterally Cardio: COMMON NORMALS: no JVD, regular rate, regular rhythm and No murmurs present (Cardio) RATE: regular rate RHYTHM: regular rhythm GI: COMMON NORMALS: Soft to palpation and No hepatosplenomegaly present AUSCULTATION: Yes normoactive bowel sounds PALPATION: Yes Soft to palpation, No Tenderness to palpation present (GI), No Guarding due to palpation present (GI) and Yes No hepatosplenomegaly present Extremity: COMMON NORMALS: normal to inspection, capillary refill normal, no clubbing, cyanosis or edema, no calf tenderness and no pedal edema Neuro: SENSORIUM/ORIENTATION: Yes oriented to person, Yes oriented to place and Yes oriented to time Skin: COMMON NORMALS: no rashes or lesions noted GENERAL SKIN EXAM: no rashes or lesions noted Course Vital Signs: Vital signs: Vital Signs Temperature 99.0 F 04/22/21 08:32 Pulse Rate 91 04/22/21 13:00 Respiratory Rate 15 04/22/21 13:00 Blood Pressure 106/78 04/22/21 13:00 Pulse Oximetry 98 04/22/21 13:00 MDM - General Adult MDM Narrative: Medical decision making narrative: Sepsis urinary retention hyperkalemia acute kidney injury pneumonia hypoxia. Will admit to the ICU he had a Calle placed at over [address] not [address] Lawrence orders are written Lab Data: Labs: Lab Results 04/22/21 04/22/21 04/22/21 Range/Units 08:40 08:40 08:40 WBC 15.1 H (4.0-10.0) 10^3/ uL RBC 3.79 L (4.1-5.3) 10^6/u L Hgb 10.6 L (11.7-16.6) g/dL Hct 31.0 L (42.0-52.0) % MCV 81.8 (80-94) fL MCH 28.0 (28.0-34.0) pg MCHC 34.2 (30.0-36.0) g/dL RDW 15.7 H (12.1-15.1) % Plt Count 201 (130-400) 10^3/c mm MPV 11.6 H (7.4-10.4) fL Neut % (Auto) 82.9 % Lymph % (Auto) 6.6 % [place] % (Auto) 9.1 % Eos % (Auto) 1.0 % Baso % (Auto) 0.1 % Neut # (Auto) 12.48 H (1.8-7.7) 10^3/u L Lymph # (Auto) 1.0 (0.8-4.8) 10^3/u L [place] # (Auto) 1.4 H (0.2-0.9) 10^3/u L Eos # (Auto) 0.2 (0.0-0.8) 10^3/u L Baso # (Auto) 0.0 (0.0-0.1) 10^3/u L Nucleated RBC % (a uto) 0 % Nucleated RBCs # 0.0 /100WBC Specimen Type Sample Site ABG pH (7.35-7.45) ABG pCO2 (35-45) mmHg ABG pO2 (80.0-100.0) mmH g ABG HCO3 (22-26) mmol/L ABG O2 Saturation ABG Base Excess (-2.0-2.0) mmol/ L Noel Test A-a O2 Gradient (5-10) mmHg Hematocrit (42-52) % Hgb O2 Saturation (95-100) % Carboxyhemoglobin (0.4-20.1) %THgb Methemoglobin (0.4-1.5) % Total Hemoglobin (14-18) g/dL Ionized Calcium (1.1-1.4) mmol/L O2 Delivery Device O2 Liters/Min % FiO2 % Instructor Psychiatric Aide ID Sodium Cancelled Potassium Cancelled Chloride Cancelled Carbon Dioxide Cancelled Anion Gap Cancelled BUN Cancelled Creatinine Cancelled GFR Calculation Cancelled Glucose Cancelled POC Glucose (70-110) mg/dL Calculated Osmolal ity Cancelled Lactic Acid 1.3 (0.5-2.2) mmol/L Calcium Cancelled Iron (59-158) ug/dL TIBC mcg/dl % Saturation (20-50) % Unsat Iron Binding (112-347) ug/dL Ferritin (30-400) ng/mL Total Bilirubin Cancelled AST Cancelled ALT Cancelled Alkaline Phosphata se Cancelled Creatine Kinase Cancelled Troponin T Baselin e Troponin T 120 Min [place] (0-15) ng/L Delta Troponin T (0-10) ABS# Total Protein Cancelled Albumin Cancelled Globulin Cancelled Lipase Cancelled TSH (0.27-4.20) uIU/ mL Random Cortisol (2.47-19.5) ug/d L Urine Color (Yellow) Urine Appearance (CLEAR) Urine pH (5-7) Ur Specific Gravit y (1.005-1.030) Urine Protein (Negative) Urine Glucose (UA) (Normal) Urine Ketones (Negative) Urine Blood (Negative) Urine Nitrate (Negative) Urine Bilirubin (Negative) Urine Urobilinogen (Negative) mg/dL Ur Leukocyte Yuliya ase (Negative) Serum Ketones 04/22/21 04/22/21 04/22/21 Range/Units 08:40 08:40 08:40 WBC (4.0-10.0) 10^3/ uL RBC (4.1-5.3) 10^6/u L Hgb (11.7-16.6) g/dL Hct (42.0-52.0) % MCV (80-94) fL MCH (28.0-34.0) pg MCHC (30.0-36.0) g/dL RDW (12.1-15.1) % Plt Count (130-400) 10^3/c mm MPV (7.4-10.4) fL Neut % (Auto) % Lymph % (Auto) % [place] % (Auto) % Eos % (Auto) % Baso % (Auto) % Neut # (Auto) (1.8-7.7) 10^3/u L Lymph # (Auto) (0.8-4.8) 10^3/u L [place] # (Auto) (0.2-0.9) 10^3/u L Eos # (Auto) (0.0-0.8) 10^3/u L Baso # (Auto) (0.0-0.1) 10^3/u L Nucleated RBC % (a uto) % Nucleated RBCs # /100WBC Specimen Type Sample Site ABG pH (7.35-7.45) ABG pCO2 (35-45) mmHg ABG pO2 (80.0-100.0) mmH g ABG HCO3 (22-26) mmol/L ABG O2 Saturation ABG Base Excess (-2.0-2.0) mmol/ L Noel Test A-a O2 Gradient (5-10) mmHg Hematocrit (42-52) % Hgb O2 Saturation (95-100) % Carboxyhemoglobin (0.4-20.1) %THgb Methemoglobin (0.4-1.5) % Total Hemoglobin (14-18) g/dL Ionized Calcium (1.1-1.4) mmol/L O2 Delivery Device O2 Liters/Min % FiO2 % Instructor Psychiatric Aide ID Sodium Potassium Chloride Carbon Dioxide Anion Gap BUN Creatinine GFR Calculation Glucose POC Glucose (70-110) mg/dL Calculated Osmolal ity Lactic Acid (0.5-2.2) mmol/L Calcium Iron (59-158) ug/dL TIBC mcg/dl % Saturation (20-50) % Unsat Iron Binding (112-347) ug/dL Ferritin (30-400) ng/mL Total Bilirubin AST ALT Alkaline Phosphata se Creatine Kinase Troponin T Baselin e Cancelled Troponin T 120 Min [place] (0-15) ng/L Delta Troponin T (0-10) ABS# Total Protein Albumin Globulin Lipase TSH (0.27-4.20) uIU/ mL Random Cortisol (2.47-19.5) ug/d L Urine Color Yellow (Yellow) Urine Appearance Clear (CLEAR) Urine pH 5 (5-7) Ur Specific Gravit y 1.020 (1.005-1.030) Urine Protein Neg (Negative) Urine Glucose (UA) 2+ (Normal) Urine Ketones Negative (Negative) Urine Blood Neg (Negative) Urine Nitrate Negative (Negative) Urine Bilirubin Neg (Negative) Urine Urobilinogen Norm (Negative) mg/dL Ur Leukocyte Yuliya ase Negative (Negative) Serum Ketones Cancelled 04/22/21 04/22/21 04/22/21 Range/Units 08:47 08:55 09:30 WBC (4.0-10.0) 10^3/ uL RBC (4.1-5.3) 10^6/u L Hgb (11.7-16.6) g/dL Hct (42.0-52.0) % MCV (80-94) fL MCH (28.0-34.0) pg MCHC (30.0-36.0) g/dL RDW (12.1-15.1) % Plt Count (130-400) 10^3/c mm MPV (7.4-10.4) fL Neut % (Auto) % Lymph % (Auto) % [place] % (Auto) % Eos % (Auto) % Baso % (Auto) % Neut # (Auto) (1.8-7.7) 10^3/u L Lymph # (Auto) (0.8-4.8) 10^3/u L [place] # (Auto) (0.2-0.9) 10^3/u L Eos # (Auto) (0.0-0.8) 10^3/u L Baso # (Auto) (0.0-0.1) 10^3/u L Nucleated RBC % (a uto) % Nucleated RBCs # /100WBC Specimen Type Arterial Sample Site Radial, right ABG pH 7.31 L (7.35-7.45) ABG pCO2 43.3 (35-45) mmHg ABG pO2 105.0 H (80.0-100.0) mmH g ABG HCO3 21.5 L (22-26) mmol/L ABG O2 Saturation 97.0 ABG Base Excess -4.6 L (-2.0-2.0) mmol/ L Noel Test Pos A-a O2 Gradient 12.6 H (5-10) mmHg Hematocrit 32.2 L (42-52) % Hgb O2 Saturation 95.9 (95-100) % Carboxyhemoglobin 0.6 (0.4-20.1) %THgb Methemoglobin 0.6 (0.4-1.5) % Total Hemoglobin 10.5 L (14-18) g/dL Ionized Calcium 1.1 (1.1-1.4) mmol/L O2 Delivery Device Nc O2 Liters/Min 4.0 % FiO2 36.0 % Instructor Psychiatric Aide ID [place] Sodium 134.0 132 L Potassium 5.7 H 5.9 H Chloride 98 Carbon Dioxide 22 Anion Gap 17.9 BUN 66 H Creatinine 2.7 H GFR Calculation 23.7 L Glucose 132.0 H 128 H POC Glucose 132 H (70-110) mg/dL Calculated Osmolal ity 295 Lactic Acid (0.5-2.2) mmol/L Calcium 7.3 L Iron (59-158) ug/dL TIBC mcg/dl % Saturation (20-50) % Unsat Iron Binding (112-347) ug/dL Ferritin (30-400) ng/mL Total Bilirubin 0.5 AST 35 ALT 21 Alkaline Phosphata se 71 Creatine Kinase 819 H* Troponin T Baselin e Troponin T 120 Min [place] (0-15) ng/L Delta Troponin T (0-10) ABS# Total Protein 6.8 Albumin 3.5 Globulin 3.3 Lipase 9 L TSH (0.27-4.20) uIU/ mL Random Cortisol (2.47-19.5) ug/d L Urine Color (Yellow) Urine Appearance (CLEAR) Urine pH (5-7) Ur Specific Gravit y (1.005-1.030) Urine Protein (Negative) Urine Glucose (UA) (Normal) Urine Ketones (Negative) Urine Blood (Negative) Urine Nitrate (Negative) Urine Bilirubin (Negative) Urine Urobilinogen (Negative) mg/dL Ur Leukocyte Yuliya ase (Negative) Serum Ketones 04/22/21 04/22/21 04/22/21 Range/Units 09:30 09:30 09:30 WBC (4.0-10.0) 10^3/ uL RBC (4.1-5.3) 10^6/u L Hgb (11.7-16.6) g/dL Hct (42.0-52.0) % MCV (80-94) fL MCH (28.0-34.0) pg MCHC (30.0-36.0) g/dL RDW (12.1-15.1) % Plt Count (130-400) 10^3/c mm MPV (7.4-10.4) fL Neut % (Auto) % Lymph % (Auto) % [place] % (Auto) % Eos % (Auto) % Baso % (Auto) % Neut # (Auto) (1.8-7.7) 10^3/u L Lymph # (Auto) (0.8-4.8) 10^3/u L [place] # (Auto) (0.2-0.9) 10^3/u L Eos # (Auto) (0.0-0.8) 10^3/u L Baso # (Auto) (0.0-0.1) 10^3/u L Nucleated RBC % (a uto) % Nucleated RBCs # /100WBC Specimen Type Sample Site ABG pH (7.35-7.45) ABG pCO2 (35-45) mmHg ABG pO2 (80.0-100.0) mmH g ABG HCO3 (22-26) mmol/L ABG O2 Saturation ABG Base Excess (-2.0-2.0) mmol/ L Noel Test A-a O2 Gradient (5-10) mmHg Hematocrit (42-52) % Hgb O2 Saturation (95-100) % Carboxyhemoglobin (0.4-20.1) %THgb Methemoglobin (0.4-1.5) % Total Hemoglobin (14-18) g/dL Ionized Calcium (1.1-1.4) mmol/L O2 Delivery Device O2 Liters/Min % FiO2 % Instructor Psychiatric Aide ID Sodium Potassium Chloride Carbon Dioxide Anion Gap BUN Creatinine GFR Calculation Glucose POC Glucose (70-110) mg/dL Calculated Osmolal ity Lactic Acid (0.5-2.2) mmol/L Calcium Iron (59-158) ug/dL TIBC mcg/dl % Saturation (20-50) % Unsat Iron Binding (112-347) ug/dL Ferritin (30-400) ng/mL Total Bilirubin AST ALT Alkaline Phosphata se Creatine Kinase Troponin T Baselin e 65 H Troponin T 120 Min [place] (0-15) ng/L Delta Troponin T (0-10) ABS# Total Protein Albumin Globulin Lipase TSH 0.63 (0.27-4.20) uIU/ mL Random Cortisol 12.02 (2.47-19.5) ug/d L Urine Color (Yellow) Urine Appearance (CLEAR) Urine pH (5-7) Ur Specific Gravit y (1.005-1.030) Urine Protein (Negative) Urine Glucose (UA) (Normal) Urine Ketones (Negative) Urine Blood (Negative) Urine Nitrate (Negative) Urine Bilirubin (Negative) Urine Urobilinogen (Negative) mg/dL Ur Leukocyte Yuliya ase (Negative) Serum Ketones Negative 04/22/21 04/22/21 04/22/21 Range/Units 09:30 10:31 11:13 WBC (4.0-10.0) 10^3/ uL RBC (4.1-5.3) 10^6/u L Hgb (11.7-16.6) g/dL Hct (42.0-52.0) % MCV (80-94) fL MCH (28.0-34.0) pg MCHC (30.0-36.0) g/dL RDW (12.1-15.1) % Plt Count (130-400) 10^3/c mm MPV (7.4-10.4) fL Neut % (Auto) % Lymph % (Auto) % [place] % (Auto) % Eos % (Auto) % Baso % (Auto) % Neut # (Auto) (1.8-7.7) 10^3/u L Lymph # (Auto) (0.8-4.8) 10^3/u L [place] # (Auto) (0.2-0.9) 10^3/u L Eos # (Auto) (0.0-0.8) 10^3/u L Baso # (Auto) (0.0-0.1) 10^3/u L Nucleated RBC % (a uto) % Nucleated RBCs # /100WBC Specimen Type Sample Site ABG pH (7.35-7.45) ABG pCO2 (35-45) mmHg ABG pO2 (80.0-100.0) mmH g ABG HCO3 (22-26) mmol/L ABG O2 Saturation ABG Base Excess (-2.0-2.0) mmol/ L Noel Test A-a O2 Gradient (5-10) mmHg Hematocrit (42-52) % Hgb O2 Saturation (95-100) % Carboxyhemoglobin (0.4-20.1) %THgb Methemoglobin (0.4-1.5) % Total Hemoglobin (14-18) g/dL Ionized Calcium (1.1-1.4) mmol/L O2 Delivery Device O2 Liters/Min % FiO2 % Instructor Psychiatric Aide ID Sodium Potassium Chloride Carbon Dioxide Anion Gap BUN Creatinine GFR Calculation Glucose POC Glucose 115 H (70-110) mg/dL Calculated Osmolal ity Lactic Acid (0.5-2.2) mmol/L Calcium Iron 36 L (59-158) ug/dL TIBC 284 mcg/dl % Saturation 12.6 L (20-50) % Unsat Iron Binding 248 (112-347) ug/dL Ferritin 153 (30-400) ng/mL Total Bilirubin AST ALT Alkaline Phosphata se Creatine Kinase Troponin T Baselin e Troponin T 120 Min la posta 47.06 H (0-15) ng/L Delta Troponin T -17.94 L (0-10) ABS# Total Protein Albumin Globulin Lipase TSH (0.27-4.20) uIU/ mL Random Cortisol (2.47-19.5) ug/d L Urine Color (Yellow) Urine Appearance (CLEAR) Urine pH (5-7) Ur Specific Gravit y (1.005-1.030) Urine Protein (Negative) Urine Glucose (UA) (Normal) Urine Ketones (Negative) Urine Blood (Negative) Urine Nitrate (Negative) Urine Bilirubin (Negative) Urine Urobilinogen (Negative) mg/dL Ur Leukocyte Yuliya ase (Negative) Serum Ketones 04/22/21 04/22/21 Range/Units 12:05 12:05 WBC 11.8 H (4.0-10.0) 10^3/ uL RBC 3.33 L (4.1-5.3) 10^6/u L Hgb 9.2 L (11.7-16.6) g/dL Hct 28.5 L (42.0-52.0) % MCV 85.6 (80-94) fL MCH 27.6 L (28.0-34.0) pg MCHC 32.3 D (30.0-36.0) g/dL RDW 15.8 H (12.1-15.1) % Plt Count 157 (130-400) 10^3/c mm MPV 11.0 H (7.4-10.4) fL Neut % (Auto) 76.6 % Lymph % (Auto) 11.6 % [place] % (Auto) 9.6 % Eos % (Auto) 1.7 % Baso % (Auto) 0.2 % Neut # (Auto) 9.02 H (1.8-7.7) 10^3/u L Lymph # (Auto) 1.4 (0.8-4.8) 10^3/u L [place] # (Auto) 1.1 H (0.2-0.9) 10^3/u L Eos # (Auto) 0.2 (0.0-0.8) 10^3/u L Baso # (Auto) 0.0 (0.0-0.1) 10^3/u L Nucleated RBC % (a uto) 0 % Nucleated RBCs # 0.0 /100WBC Specimen Type Sample Site ABG pH (7.35-7.45) ABG pCO2 (35-45) mmHg ABG pO2 (80.0-100.0) mmH g ABG HCO3 (22-26) mmol/L ABG O2 Saturation ABG Base Excess (-2.0-2.0) mmol/ L Noel Test A-a O2 Gradient (5-10) mmHg Hematocrit (42-52) % Hgb O2 Saturation (95-100) % Carboxyhemoglobin (0.4-20.1) %THgb Methemoglobin (0.4-1.5) % Total Hemoglobin (14-18) g/dL Ionized Calcium (1.1-1.4) mmol/L O2 Delivery Device O2 Liters/Min % FiO2 % Instructor Psychiatric Aide ID Sodium 137 Potassium 4.8 Chloride 105 Carbon Dioxide 24 Anion Gap 12.8 BUN 60 H Creatinine 2.1 H GFR Calculation 31.7 L Glucose 52 L POC Glucose (70-110) mg/dL Calculated Osmolal ity 298 H Lactic Acid (0.5-2.2) mmol/L Calcium 7.0 L Iron (59-158) ug/dL TIBC mcg/dl % Saturation (20-50) % Unsat Iron Binding (112-347) ug/dL Ferritin (30-400) ng/mL Total Bilirubin AST ALT Alkaline Phosphata se Creatine Kinase Troponin T Baselin e Troponin T 120 Min [place] (0-15) ng/L Delta Troponin T (0-10) ABS# Total Protein Albumin Globulin Lipase TSH (0.27-4.20) uIU/ mL Random Cortisol (2.47-19.5) ug/d L Urine Color (Yellow) Urine Appearance (CLEAR) Urine pH (5-7) Ur Specific Gravit y (1.005-1.030) Urine Protein (Negative) Urine Glucose (UA) (Normal) Urine Ketones (Negative) Urine Blood (Negative) Urine Nitrate (Negative) Urine Bilirubin (Negative) Urine Urobilinogen (Negative) mg/dL Ur Leukocyte Yuliya ase (Negative) Serum Ketones Discharge Plan Discharge Clinical Impression: Acute kidney injury, Urinary retention, Pneumonia, Acute respiratory failure with hypoxia, Hyponatremia, Anemia, Sepsis, Rhabdomyolysis, Elevated troponin, Hyperkalemia, Encephalopathy acute Condition: Stable Prescriptions: No Action lisinopril 10 mg tablet 10 mg PO DAILY RF: 0 omeprazole 40 mg capsule,delayed release(DR/EC) 40 mg PO DAILY RF: 0 gabapentin [Neurontin] 300 mg capsule 300 mg PO QID RF: 0 omega-3 acid ethyl esters [Lovaza] 1 gram capsule 1 cap PO BID RF: 0 furosemide [Lasix] 40 mg tablet 40 mg PO DAILY RF: 0 (DME) Crutches See Rx Instructions .Route .MEDSUPPLY Qty: 1 RF: 0 (DME) Cam boot on left See Rx Instructions .Route .MEDSUPPLY Qty: 1 RF: 0 clopidogrel [Plavix] 75 mg tablet 75 mg PO DAILY Qty: 90 RF: 0 nitroglycerin [Nitrostat] 0.4 mg tablet, sublingual 0.4 mg SUBLINGUAL Q5M PRN (Reason: Chest Pain) Qty: 90 RF: 2 alendronate 70 mg tablet 70 mg PO Q7D RF: 0 potassium chloride 20 mEq tablet extended release 20 meq PO DAILY Qty: 30 RF: 5 metformin 500 mg Tablet Extended Release 24 Hr 1,000 mg PO BID RF: 0 pregabalin [Lyrica] 75 mg Capsule 75 mg PO Q8H RF: 0 Tresiba FlexTouch U-200 200 unit/mL (3 mL) insulin pen 110 unit SUBCUT DAILY RF: 0 duloxetine [Cymbalta] 60 mg Capsule,Delayed Release(Dr/Ec) 60 mg PO BID RF: 0 oxycodone 30 mg tablet 30 - 60 mg PO Q4H PRN (Reason: Pain) RF: 0 morphine 30 mg tablet extended release 30 mg PO Q12H RF: 0 mirtazapine 7.5 mg tablet 7.5 mg PO BEDTIME RF: 0 Jardiance 25 mg tablet 25 mg PO DAILY RF: 0 Referrals: Carson Raman [Primary Care Provider] - Coding Level of Care Code ED Online Services Manager for Chg Fwd Exam Comprehensive
--- NOTE | 2021-04-22 08:45 | CT_ITS ---
WS: [id number] CT ABDOMEN AND PELVIS WITH CONTRAST HISTORY: Abdominal pain, tender to attach for 3 days. TECHNIQUE: Imaging performed of the abdomen and pelvis with IV contrast. Single phase imaging of the abdomen. Coronal and sagittal reformats are submitted. All CT scans at [facility] use at least one of these dose optimization techniques: automated exposure control; mA and/or kV adjustment per patient size (includes targeted exams where dose is matched to clinical indication); or iterativ e reconstruction. IV CONTRAST: Visipaque 320; 95 mL IV. Oral contrast: No DLP: 1939.71 mGy.cm COMPARISON: 09/13/2017 Lower thorax: Interstitial thickening at the lung bases. No pleural effusion. Heart is normal size. N o hiatal hernia. Liver/biliary system: Normal size with no intrahepatic dilatation. Gallbladder: Moderately well distended gallbladder. No pericholecystic fluid or edema. Stones are lik giana present in the dependent portion of the gallbladder. Pancreas: Moderate atrophy. Spleen: 12.7 cm in length. Granuloma. Adrenal glands: Normal. Right kidney: Normal size RIGHT kidney with no obstruction. Simple cyst upper pole measures 3.5 cm. 2 small to characterize hypodensity in the lower pole. Left kidney: No obstruction. 1.2 cm cyst in the mid kidney. Aorta: Mild atherosclerosis with no aneurysm. Lymphadenopathy: None. Free fluid: None. GI tract: Moderate diffuse constipation. No evidence for appendicitis. The cecum is [place] is si milar to the prior study. No obstructive pattern or ischemia. No free air is identified. There are a few diverticula in the distal colon but no evidence for acute diverticulitis. Abdominal wall: Unremarkable abdominal wall. No hernia. Pelvis: Calle catheter present in a nondistended bladder. No free fluid or adenopathy. Bones: Prior RIGHT hip total arthroplasty. Bones are mildly osteopenic. CT/CT abdomen pelvis w con* [id number] IMPRESSION: 1. No acute abdominal or pelvic abnormalities are identified. 2. Obstipation. Normal appendix. No obstruction. 3. Cholelithiasis without acute cholecystitis. 4. Bilateral renal cysts.
--- NOTE | 2021-04-22 08:45 | XRR_ITS ---
PROCEDURE INFORMATION: Exam: XR Chest Exam date and time: 04/22/2021 8:50 AM Age: 65 years old Clinical indication: Other: Altered mental status; Additional info: Hypoxia TECHNIQUE: Imaging protocol: XR of the chest. Views: 1 view. COMPARISON: CR XR chest 1V portable [id number] 07/15/2020 9:36 AM FINDINGS: Lungs: Emphysematous change , interstitial prominence, and mild left basilar airspace disease. Pleural spaces: Questionable small left pleural effusion. Heart/Mediastinum: No cardiomegaly. Bones/joints: Osteopenia and degenerative change. XR/XR chest 1V portable [id number] IMPRESSION: Emphysematous change , interstitial prominence, and mild left basilar airspace disease.
--- NOTE | 2021-04-22 08:45 | ECG_ITS ---
[facility] Test Date: 2021-04-22 Pat Name: Giovany Garcia Department: Room: Gender: Male Access Representative: : 1955 Requested By: Kleber Aleman Order Number: [id number] Zack MD: Juan Luis Schmitz M.D. Measurements Intervals [place] Rate: 94 P: 52 WA: 202 QRS: -56 QRSD: 100 T: 65 QT: 348 QTc: 437 Interpretive Statements SINUS RHYTHM PATTERN CONSISTENT WITH PULMONARY DISEASE LEFT ANTERIOR FASCICULAR BLOCK [QRS AXIS <= -45, QR IN I, RS IN II] Compared to ECG 07/15/2020 09:40:05 Left anterior fascicular block now present Left-axis deviation no longer present Electronically Signed On 04-22-2021 12:31:23 CDT by Juan Luis Schmitz M.D. [id number]
--- NOTE | 2021-04-22 08:45 | CT_ITS ---
WS: [id number] CT HEAD NONCONTRAST HISTORY: AMS TECHNIQUE: Contiguous axial imaging performed through the brain in 2.5 mm imaging. Bone and soft tiss ue windows. Sagittal and coronal reformats reviewed. All CT scans at [facility] use at ast one of these dose optimization techniques: automated exposure control; mA and/or kV adjustment pe r patient size (includes targeted exams where dose is matched to clinical indication); or iterative r econstruction. DLP: 1698.09 mGy.cm COMPARISON: 6 07/15/2020 No acute intracranial hemorrhage, midline shift or mass effect. Mild atrophy and moderate chronic microvascular ischemic type changes. No progression of disease or a cute findings. Ventricles: Normal size with no hydrocephalus. Moderate bilateral cerebellar atrophy is similar to the prior study. Paranasal sinuses: Mild mucoperiosteal thickening in the sinuses. Greatest in the LEFT anterior front al sinuses into the frontal ethmoid recess. Mastoid air cells: Well pneumatized. Calvarium and scalp: Skull is intact with no soft tissue edema or swelling. CT/CT head wo con* [id number] IMPRESSION: 1. No acute intracranial hemorrhage or edema. 2. Mild to moderate cerebral and cerebellar atrophy. Similar to the study of .
[2021-04-22 09:00] LABS: ABG PCO2 43.3 mmHg (35-45); ABG PH Result 7.31 (7.35-7.45); Alveolar-Arterial Oxygen Gradi 12.6 mmHg (5-10); Arterial Blood Gas Hematocrit 32.2 % (42-52); Base Excess ABG -4.6 mmol/L (-2.0-2.0); Blood Gas Allen Test Pos; Blood Gas Operator Identificat MONRO; Blood Gas Sample Site Radial, right; Blood Gas Sample Type Arterial; Carboxyhemoglobin 0.6 %THgb (0.4-20.1); HCO3 ABG 21.5 mmol/L (22-26); HGB O2 Sat 95.9 % (95-100); Ionized Calcium Level - ABG 1.1 mmol/L (1.1-1.4); Methemoglobin 0.6 % (0.4-1.5); Oxygen Device NC; Potassium Level - ABG 5.7 mmol/L (3.5-5.0); Total Hemoglobin 10.5 g/dL (14-18)
[2021-04-22 09:04] LABS: Glucose Point of Care 132 mg/dL (70-110)
[2021-04-22 09:06] LABS: Add Urine Microscopic? NO; Charge for UA Resulting for Rev
[2021-04-22 09:10] LABS: Basophils % 0.1 %; Eosinophils # 0.2 10^3/uL (0.0-0.8); Hemoglobin 10.6 g/dL (11.7-16.6); Lymphocytes % 6.6 %; Mean Corpuscular HGB Conc 34.2 g/dL (30.0-36.0); Mean Corpuscular Volume 81.8 fL (80-94); Mean Platelet Volume 11.6 fL (7.4-10.4); Monocytes # 1.4 10^3/uL (0.2-0.9); Monocytes % 9.1 %; Neutrophils # 12.48 10^3/uL (1.8-7.7); Neutrophils % 82.9 %; Nucleated Red Blood Cells % 0 %; Platelet Count 201 10^3/cmm (130-400); Red Blood Count 3.79 10^6/uL (4.1-5.3); Red Cell Distribution Width 15.7 % (12.1-15.1); White Blood Count 15.1 10^3/uL (4.0-10.0)
[2021-04-22] MEDS: sodium chloride 0.9% 1,000 ML 999 ML IV (09:20)
[2021-04-22 09:34] LABS: Lactic Sepsis W/Reflex 1.3 mmol/L (0.5-2.2)
[2021-04-22 09:45] LABS: Protein Urine Neg (Negative); Urine Appearance Clear (CLEAR); Urine Color Yellow (Yellow); pH Urine 5 (5-7)
[2021-04-22 09:46] LABS: Bilirubin Urine Neg (Negative); Blood Urine Neg (Negative); Glucose Urine UA 2+ (Normal); Ketones Urine Negative (Negative); Leukocyte Esterase Urine Negative (Negative); Nitrate Urine Negative (Negative); Urobilinogen Urine Norm (Negative)
[2021-04-22 09:51] LABS: Ketone (Acetest) Serum Negative (Negative)
[2021-04-22 09:54] LABS: Alanine Aminotransferase 21 U/L (0-41); Albumin Level 3.5 g/dL (3.5-5.2); Alkaline Phosphatase 71 IU/L (40-130); Anion Gap 17.9 (5-19); Aspartate Amino Transferase 35 U/L (0-40); Blood Urea Nitrogen 66 mg/dL (8-23); Calcium 7.3 mg/dL (8.5-10.5); Carbon Dioxide 22 mmol/L (22-29); Chloride 98 mmol/L (98-107); Globulin 3.3 g/dL (1.3-4.6); Glomerular Filtration Rate 23.7 mL/min (90-130); Glucose 128 mg/dL (65-115); Lipase 9 U/L (13-60); Osmolality Calculated 295 mOsm/kg (285-295); Potassium 5.9 mmol/L (3.5-5.1); Sodium 132 mmol/L (136-145); Total Bilirubin 0.5 mg/dL (0.15-1.2); Total Protein 6.8 g/dL (6.6-8.7); Troponin(5th) Baseline 65 ng/L (0-15)
[2021-04-22 10:01] LABS: Creatine Phosphokinase 819 U/L (39-308)
[2021-04-22] MEDS: iodixanol 320 mg/mL 100mL Btl IV (10:26)
[2021-04-22] MEDS: calcium gluconate 0.1 gm/mL 10% SDV 10mL 1 GM IVP (10:31)
[2021-04-22] MEDS: sodium bicarbonate 8.4% 1 mEq/mL 50mL Syr 50 MEQ IVP (10:33)
[2021-04-22] MEDS: dextrose 50% syringe 50 mL IVP (10:36)
[2021-04-22] MEDS: sodium chloride 0.9% 2,857.62 ML 2857.6 ML IV (10:38)
[2021-04-22] MEDS: insulin regular-human 100 units/1 mL 10 UNIT IVP (10:40)
[2021-04-22] MEDS: levofloxacin-dextrose 5 % 750 MG/150 ML PREMIX 100 MG IV (10:40)
--- NOTE | 2021-04-22 10:45 | ECG_ITS ---
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 Measurements Intervals [place] Rate: 92 P: -14 NV: 192 QRS: -46 QRSD: 105 T: 69 QT: 378 QTc: 469 Interpretive Statements SINUS RHYTHM WITH FIRST DEGREE AV BLOCK PATTERN CONSISTENT WITH PULMONARY DISEASE LEFT ANTERIOR FASCICULAR BLOCK [QRS AXIS <= -45, QR IN I, RS IN II] SEPTAL MYOCARDIAL INFARCTION [40+ ms Q WAVE IN V1/V2], PROBABLY OLD Compared to ECG 04/22/2021 08:52:31 Myocardial infarct finding now present Electronically Signed On 04-22-2021 12:36:06 CDT by Juan Luis Schmitz M.D. [id number]
--- NOTE | 2021-04-22 10:56 | PC.PHAR ---
pt unable to verify medications due to ams-pt mumbled that he uses 110 units at hs of tresiba flextouch u-200-rx last filled for 120 units before lunch filled in 03/25/21 30d/s-pt states his traci helps him with his medications-called traci she states she is in the [facility] after having knee surgery and states she cant remember all the names of medications-pt brought in some medication bottle-entered medications are meds that show on ext med history and med bottles pt brought
[2021-04-22 11:00] LABS: Troponin 5 2HR 47.06 ng/L (0-15)
--- NOTE | 2021-04-22 11:20 | XR_ITS ---
WS: [id number] LEFT FOOT: 2 VIEW(S) TECHNIQUE: AP and lateral. HISTORY: erythema COMPARISON: 02/28/2021 Plate and screw fusion hardware across the first, second and third tarsometatarsal joint spaces. Fixa tion of fractures and realignment of lateral displacement of the second metatarsal. Fracture lines ar e still identified. There is osteopenia. Diffuse osteopenia. Peripheral arterial calcifications. XR/XR foot LT 2V [id number] IMPRESSION: 1. Status post fusion across the first through third metatarsophalangeal joint s with realignment. Fracture lines are still evident. 2. No prior studies for comparison since prehardware placement. 3. Diffuse soft tissue edema. 4. Healing fractures. Component of osteomyelitis cannot be excluded due to the healing fractures and osteopenia.
[2021-04-22 11:21] LABS: Glucose Point of Care 115 mg/dL (70-110)
--- NOTE | 2021-04-22 11:25 | P.HP_ITS ---
Providers/Chief Complaint Primary Care Provider: Carson Raman Chief Complaint: LOW BP/ TEMP/ NOT FEELING WELL History of Present Illness Giovany Garcia is a 65 year old male who presents to the emergency department with confusion. History is somewhat difficult as the patient is lethargic, and confused. No family member is present currently. When I called his she reports she is in a senior care and he has somebody who is helping care for him at home and gave me this number. No answer occurred at that number. With vigorous stimulation the patient comes awake briefly and will state that he felt bad for 2 days, has had some dark stools for 2 weeks, felt like he had a fever at home, recently got surgery on his left foot in [place]. He denies any current chest pain. He reports he has had a slight cough at home. Unfortunately I cannot delineate any other history. I was able to at least confirm he had been vaccinated for Covid perhaps in January. In the emergency department he has received some Levaquin. He received insulin and glucose, calcium gluconate, sodium bicarbonate, Kayexalate. A catheter was placed in his bladder, and over 1 L of urine drained. Review of Systems General: Reports: ROS unobtainable due to mental status (Patient very sleepy/lethargic) Medications/Allergies Home Medications Medication Instructions Recorded Confirmed Last Taken Type gabapentin 300 mg capsule 300 mg PO QID cap 12/02/19 04/22/21 06/05/20 History lisinopril 10 mg tablet 10 mg PO DAILY 12/02/19 04/22/21 06/05/20 History omega-3 acid ethyl esters 1 gram 1 cap PO BID 12/02/19 04/22/21 06/05/20 History capsule omeprazole 40 mg capsule,delayed 40 mg PO DAILY 12/02/19 04/22/21 06/05/20 History release Jardiance 25 mg PO DAILY 04/05/20 04/22/21 06/05/20 History Tresiba FlexTouch U-200 110 unit SUBCUT DAILY 07/15/20 04/22/21 Unknown History duloxetine [Cymbalta] 60 mg PO BID 07/15/20 04/22/21 Unknown History metformin 1,000 mg PO BID 07/15/20 04/22/21 Unknown History pregabalin [Lyrica] 75 mg PO Q8H 07/15/20 04/22/21 Unknown History clopidogrel 75 mg tablet 75 mg PO DAILY #90 tab 07/31/20 04/22/21 Unknown Rx nitroglycerin 0.4 mg sublingual 0.4 mg SUBLINGUAL Q5M PRN #90 tab 08/21/20 04/22/21 Unknown Rx tablet alendronate 70 mg tablet 70 mg PO Q7D tab 02/20/21 04/22/21 Unknown History Cam boot on left #1 ea 03/04/21 04/22/21 Unknown Rx Crutches #1 ea 03/04/21 04/22/21 Unknown Rx furosemide 40 mg tablet 40 mg PO DAILY 03/04/21 04/22/21 Unknown History potassium chloride 20 mEq 20 meq PO DAILY #30 tab 03/26/21 04/22/21 Unknown Rx tablet,extended release mirtazapine 7.5 mg PO BEDTIME 04/22/21 04/22/21 Unknown History morphine 30 mg PO Q12H 04/22/21 04/22/21 Unknown History oxycodone 30 - 60 mg PO Q4H PRN 04/22/21 04/22/21 Unknown History Allergies Allergy/AdvReac Type Severity Reaction Status Date / Time No Known Allergies Allergy Verified 04/03/21 09:15 PFSH Acute PFSH: Medical History Atherosclerosis of [place] coronary artery of [place] heart without angina pectoris Atypical angina Atypical chest pain The EKG revealed possible ectopic atrial rhythm. Left axis deviation. Poor R wave progression. 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 Hematochezia Hyperlipidemia, mixed Leg pain Neuropathy Osteoarthritis of right AC (acromioclavicular) joint Shoulder impingement Sleep apnea Tear of lateral meniscus of right knee, current Tear of medial meniscus of right knee Type 2 diabetes mellitus Varicose vein of leg Surgical History H/O angioplasty H/O arthroscopy of left knee H/O arthroscopy of right knee With resection of medial and lateral meniscal tears H/O carpal tunnel repair H/O hernia repair H/O laminectomy H/O shoulder surgery History of coronary artery stent placement Family History Father CAD (coronary artery disease) Hypertension Stroke Brother Cancer Grandmother Diabetes Hyperlipidemia Denies family history of Clotting disorder Dementia Psychiatric illness Chronic kidney disease (CKD) Suicide Anesthesia complication Bleeding disorder Family history of premature coronary artery disease Lung disease Social History Smoking and tobacco status: never smoked Alcohol intake: never Lives independently: Yes (with girlfriend) Household members: significant other Marital status: / Current occupational status: retired 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 He is borderline hypotensive. HEENT: Atraumatic and normocephalic. Pupils equally round. Oropharynx clear. Neck is supple no lymphadenopathy or thyromegaly Cardiovascular regular rate and rhythm, no murmur Lungs are clear no wheezing or crackles. Abdomen is soft with positive bowel sounds. No obvious organomegaly exam is deferred Extremities no cyanosis clubbing or edema, cap refill brisk. Slight dehiscence of a left foot scar from recent surgery and slight erythema around this. Skin no rash Neuro no obvious focal deficits. Lethargic. Urinary Catheter Management^: Calle: Cath Placed During This Visit: yes Urinary Catheter Date of Insertion: 04/22/21 Urinary Catheter Time of Insertion: 08:40 Sepsis: Is patient septic: Yes Focused sepsis exam performed: Yes Date exam was performed: 04/22/21 Time exam was performed: 11:46 Data : 04/22/21 08:40 04/22/21 09:30 Other data: Chest x-ray shows small infiltrate left lower lobe. EKG demonstrates left anterior fascicular block, sinus rhythm with a heart rate of 94 and left axis deviation Echocardiogram June 2020 demonstrated preserved EF and normal valves Nuclear stress test April 2020 demonstrated small reversible basal and mid inferi or wall defect but did not appear on Polar plot images. Cardiology was managing medically as patient had paucity of symptoms ABG demonstrates a pH of 7.31, PCO2 43, PO2 105 on 4 L Calcium is 7.3, albumin 3.5, CK 819, troponin 65 with repeat 47 at 120 minutes Anion gap 17.9 Urinalysis with negative protein, negative leukocyte estrace neg Ketone serum neg Lactic acid is 1.3 CT demonstrates obstipation, cholelithiasis without cystitis and bilateral renal cysts. Head CT negative for acute findings A&P Assessment and plan (1) Encephalopathy acute: This is multifactorial. Could be secondary to renal failure, sepsis, or narcotics. Continue to monitor closely for improvement Status: Acute (2) Acute kidney injury: Most likely secondary to urinary retention is over 1 L of urine was obtained after Calle catheter placement. CT abdomen and pelvis demonstrated bilateral renal cysts but had no hydronephrosis or obstruction. Obstipation was noted. Monitor closely urine output as well as improvement of renal function. Hold Lasix Status: Acute (3) Urinary retention: Calle placed When stable from her blood pressure and sepsis standpoint consider initiation of Flomax, treatment of constipation Status: Acute (4) Hyperkalemia: Insulin and glucose, calcium gluconate, Kayexalate given in the emergency department Close follow-up of hyperkalemia Telemetry Hold potassium and BEATRIZ inhibitor. Hold Metformin. Status: Acute (5) Pneumonia: Secondary to concern of sepsis, will place initially on Zosyn plus vancomycin Sputum culture, MRSA PCR Status: Acute (6) Acute respiratory failure with hypoxia: Oxygen, titrate as needed. Monitor for fluid overload. Status: Acute (7) Hyponatremia: Check TSH and cortisol Continue to follow closely. Status: Acute (8) Anemia: Patient gives history for dark stools, and considering he is likely hemoconcentrated is fairly anemic. Check stool Hemoccult Protonix 40 mg IV every 12 hours Anemia panel Status: Acute (9) Sepsis: Broad-spectrum antibiotics Fluid resuscitation ordered through the emergency department Following arrival to the ICU, will continue fluids at approximately 100 cc an hour after his 30 mill per kilo bolus. Monitor for fluid overload. Currently he does not have an elevated lactic, nor does he have septic shock. Indicators of sepsis were heart rate greater than 90 upon arrival, respiratory rate greater than 20 prior to arrival when patient was not on oxygen, creatinine greater than 2 Keep MAP greater than 65 Status: Acute (10) Rhabdomyolysis: Mild rhabdomyolysis noted. Repeat CK in the morning Status: Acute (11) Elevated troponin: Type II elevation. Status: Acute Additional A&P Information Metabolic acidosis, likely secondary to sepsis. Constipation. Consider treatment following improvement of other conditions/sepsis. Recent surgery left foot with some left foot wound dehiscence. Check x-ray of left foot. Cover with vancomycin until cultures/MRSA PCR completed. Chronic pain, on chronic narcotics. Hold currently until mental status improves but will need to likely restart in the near future to prevent withdrawal. Borderline hypotension. Hold blood pressure medications. History of coronary artery disease with previous angioplasty. I cannot determine that any angioplasty has been done in the last year. However, we will continue Plavix for the time being unless significant GI bleed is discovered. Type 2 diabetes. Mild sliding scale insulin Diabetic neuropathy. Secondary to encephalopathy hold medications currently GERD. Protonix will suffice Hypertension. Borderline hypotension currently. Hyperlipidemia DJD/osteoporosis Depression Multiple other medical problems as outlined in his past medical history Full code SCDs for DVT prophylaxis secondary to concern of anemia, history of dark stools Attestations 2 Medical Necessity Statement*: Will need greater than 2 midnight stay for evaluation and treatment of sepsis as well as other conditions. Time Spent in Patient Care: Greater than 35 minutes Critical Care Time: The high probability of a clinically significant, sudden or life threatening deterioration of the patient's [sepsis, renal, pulmonary] system(s) required my full and direct attention, intervention and personal management. The critical care time is as shown. 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
[2021-04-22 11:55] LABS: Cortisol Random 12.02 ug/dL (2.47-19.5); Thyroid Stimulating Hormone 0.63 uIU/mL (0.27-4.20)
[2021-04-22 12:12] LABS: Ferritin 153 ng/mL (30-400); Iron 36 ug/dL (59-158); Percent Saturation 12.6 % (20-50); Total Iron Binding Capacity 284 mcg/dl; Unsaturated Iron Binding 248 ug/dL (112-347)
--- NOTE | 2021-04-22 12:14 | PC.NURSE ---
Pt daughter who has admittedly taken pt medication, was seen leaving the room when pt meds were at bedside. Pt daughter denies taking pt's medications but refuses to stay after asking about pt condition. Physician notified, medications removed from bedside.
[2021-04-22 12:23] LABS: Basophils % 0.2 %; Eosinophils # 0.2 10^3/uL (0.0-0.8); Eosinophils % 1.7 %; Hematocrit 28.5 % (42.0-52.0); Hemoglobin 9.2 g/dL (11.7-16.6); Lymphocytes # 1.4 10^3/uL (0.8-4.8); Lymphocytes % 11.6 %; Mean Corpuscular HGB Conc 32.3 g/dL (30.0-36.0); Mean Corpuscular Hemoglobin 27.6 pg (28.0-34.0); Mean Corpuscular Volume 85.6 fL (80-94); Monocytes # 1.1 10^3/uL (0.2-0.9); Monocytes % 9.6 %; Neutrophils # 9.02 10^3/uL (1.8-7.7); Neutrophils % 76.6 %; Nucleated Red Blood Cells % 0 %; Platelet Count 157 10^3/cmm (130-400); Red Blood Count 3.33 10^6/uL (4.1-5.3); Red Cell Distribution Width 15.8 % (12.1-15.1); White Blood Count 11.8 10^3/uL (4.0-10.0)
--- NOTE | 2021-04-22 12:23 | PC.NURSE ---
Medication count 170 count Oxycodone 30 mg IR in pill bottle 45 count Morphine Sul 30 mg ER Count with Claudia Armas, RN
--- NOTE | 2021-04-22 12:29 | PC.NURSE ---
Medications Patient to be admitted to ICU, medications taken to ICU and placed into Pyxis. Unable to send medications home with family, patient with AMS.
[2021-04-22 12:47] LABS: Anion Gap 12.8 (5-19); Blood Urea Nitrogen 60 mg/dL (8-23); Carbon Dioxide 24 mmol/L (22-29); Chloride 105 mmol/L (98-107); Glomerular Filtration Rate 31.7 mL/min (90-130); Glucose 52 mg/dL (65-115); Osmolality Calculated 298 mOsm/kg (285-295); Potassium 4.8 mmol/L (3.5-5.1); Sodium 137 mmol/L (136-145)
--- NOTE | 2021-04-22 14:45 | ECG_ITS ---
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 Measurements Intervals [place] Rate: 94 P: 26 CO: 211 QRS: -54 QRSD: 96 T: 66 QT: 372 QTc: 466 Interpretive Statements SINUS RHYTHM WITH FIRST DEGREE AV BLOCK PATTERN CONSISTENT WITH PULMONARY DISEASE LEFT ANTERIOR FASCICULAR BLOCK [QRS AXIS <= -45, QR IN I, RS IN II] SEPTAL MYOCARDIAL INFARCTION [40+ ms Q WAVE IN V1/V2], OF INDETERMINATE AGE Compared to ECG 04/22/2021 10:47:22 No significant changes Electronically Signed On 04-22-2021 19:09:08 CDT by Juan Luis Schmitz M.D. [id number]
[2021-04-22 15:03] LABS: Glucose Point of Care 82 mg/dL (70-110)
[2021-04-22] MEDS: pantoprazole 40 mg SDV IVP (15:17)
[2021-04-22] MEDS: sodium chloride 0.9% 1,000 ML 100 ML IV (15:18)
[2021-04-22 16:11] LABS: Troponin 5 6HR 42.73 ng/L (0-15)
--- NOTE | 2021-04-22 17:48 | PC.NURSE ---
Pt stated he received both Covid vaccinations in January, second dose two weeks after first dose. He thinks it was appEatIT.
[2021-04-22 18:07] LABS: Glucose Point of Care 61 mg/dL (70-110)
[2021-04-22] MEDS: morphine ER (12 HR) 15 mg Tablet PO (18:38)
[2021-04-22] MEDS: piperacillin-tazobactam 3.375 GM in sodium chloride 0.9% (plus) 50 ML IV (18:38)
[2021-04-22] MEDS: vancomycin 1,250 MG/250 ML PIGGYBACK 250 MG IV (18:39)
--- NOTE | 2021-04-22 18:39 | PC.NURSE ---
MAR other delay related to : Vanc IV orders were for when pt in Ed, pt just admitted to ICU 1726. Admission completed. Other pt required immediate care.
--- NOTE | 2021-04-22 19:20 | PC.NURSE ---
Report given to Halley Lim. Pt just arrived to ICU at 1730. Admission complete. Vancomycin and Zosyn started. Pt had blood sugar of 61mg/dl at dinner, not rechecked, pt less lethargic and ate all of his dinner tray . He also has had diet soda available.
[2021-04-22 20:38] LABS: Glucose Point of Care 133 mg/dL (70-110)
[2021-04-23] VITALS (35 sets, daily range): BP systolic 112–157; BP diastolic 58–87; PULSE 86–107; RESP 12–49; TEMP 36.4–36.9; O2SAT 90–99; BMI 27.1
[2021-04-23] MEDS: piperacillin-tazobactam 3.375 GM in sodium chloride 0.9% (plus) 50 ML IV ×3 (01:03→17:00)
[2021-04-23] MEDS: sodium chloride 0.9% 1,000 ML 100 ML IV ×3 (01:03→21:55)
[2021-04-23 03:40] LABS: Glucose Point of Care 160 mg/dL (70-110)
[2021-04-23] MEDS: pantoprazole 40 mg SDV IVP (04:06)
[2021-04-23 05:05] LABS: Basophils % 0.6 %; Eosinophils # 0.3 10^3/uL (0.0-0.8); Eosinophils % 4.6 %; Hematocrit 34.5 % (42.0-52.0); Lymphocytes % 14.4 %; Mean Corpuscular HGB Conc 31.9 g/dL (30.0-36.0); Mean Corpuscular Hemoglobin 26.9 pg (28.0-34.0); Mean Corpuscular Volume 84.4 fL (80-94); Mean Platelet Volume 11.5 fL (7.4-10.4); Monocytes # 0.8 10^3/uL (0.2-0.9); Monocytes % 11.1 %; Nucleated Red Blood Cells % 0 %; Platelet Count 182 10^3/cmm (130-400); Red Blood Count 4.09 10^6/uL (4.1-5.3); Red Cell Distribution Width 15.5 % (12.1-15.1); White Blood Count 7.1 10^3/uL (4.0-10.0)
[2021-04-23 05:26] LABS: Creatine Phosphokinase 477 U/L (39-308)
[2021-04-23 05:33] LABS: Alanine Aminotransferase 19 U/L (0-41); Albumin Level 3.5 g/dL (3.5-5.2); Alkaline Phosphatase 70 IU/L (40-130); Aspartate Amino Transferase 31 U/L (0-40); Blood Urea Nitrogen 32 mg/dL (8-23); Calcium 8.1 mg/dL (8.5-10.5); Carbon Dioxide 26 mmol/L (22-29); Chloride 104 mmol/L (98-107); Globulin 3.7 g/dL (1.3-4.6); Glomerular Filtration Rate 84.2 mL/min (90-130); Glucose 143 mg/dL (65-115); Osmolality Calculated 293 mOsm/kg (285-295); Sodium 137 mmol/L (136-145); Total Bilirubin 0.5 mg/dL (0.15-1.2); Total Protein 7.2 g/dL (6.6-8.7)
--- NOTE | 2021-04-23 07:18 | PC.NURSE ---
Shift Summary Patient had an uneventful night. No complaints of pain all evening. Patient had one large dry and formed bowel movement that was brown and slightly bloody. Patient has NS infusing in the left forearm IV site at 100mls/hr. Right forearm IV site is saline locked. Patient is alert and oriented x4 and on room air. Patient had 6650 mls out of clear bright yellow urine all evening. Wound on left foot has a dressing in place.
[2021-04-23 08:12] LABS: Glucose Point of Care 109 mg/dL (70-110)
[2021-04-23] MEDS: clopidogrel 75 mg Tablet PO (09:08)
[2021-04-23] MEDS: gabapentin 300 mg Capsule PO ×2 (09:09→17:03)
[2021-04-23] MEDS: morphine ER (12 HR) 15 mg Tablet PO ×2 (09:09→17:03)
[2021-04-23] MEDS: pantoprazole DR 40 mg Tablet PO (09:09)
[2021-04-23] MEDS: pregabalin 75 mg Capsule PO ×2 (09:09→17:03)
[2021-04-23] MEDS: tamsulosin 0.4 mg Capsule PO (09:10)
--- NOTE | 2021-04-23 09:24 | P.PN_ITS ---
Subjective Subjective: Interval history: Giovany reports that he is feeling okay. Denies any fever at home. Reports it is possible he may have taken too much narcotics as he was doing his medication on his own. Reports his left foot is feeling okay following surgery. Medications: Reviewed: Yes Vitals/I&O/Wt Last Vital Signs Temp 97.6 F 04/23/21 08:00 Pulse 86 04/23/21 08:00 Resp 16 04/23/21 08:00 BP 122/66 04/23/21 08:00 Pulse Ox 99 04/23/21 08:00 04/22/21 04/23/21 04/23/21 22:59 06:59 14:59 Intake Total 600 / 4607.62 1325 / 5932.62 240 / 240 Output Total 70461 / 39612 3750 / 51622 1200 / 1200 Balance -20378 / -6292.38 -2425 / -8717.38 -960 / -960 Weight last 48 hrs Weight 90.804 kg Weight 95.254 kg Physical Exam Narrative: EXAM NARRATIVE: General exam no apparent distress, conversant. Note that he had a bowel movement this morning. Neck is supple no lymphadenopathy or thyromegaly Cardiovascular regular rate and rhythm, no murmur Lungs are clear no wheezing or crackles. Abdomen is soft with positive bowel sounds. No obvious organomegaly Extremities no cyanosis clubbing or edema, cap refill brisk. Slight dehiscence of a left foot scar from recent surgery. No significant drainage Urinary Catheter Management^: Calle: Cath Placed During This Visit: yes Reason for Continuing Indwelling Catheter: Accurate Measurement of Urinary Output in Critically Ill Patients Urinary Catheter Date of Insertion: 04/22/21 Urinary Catheter Time of Insertion: 08:40 Data : 04/23/21 04:39 04/23/21 04:39 Micro: Microbiology 04/22/21 08:40 Urine Culture - Preliminary Urine Catheterized 04/22/21 12:10 Blood Culture - Preliminary Blood SPECIMEN COLLECTED 04/22/21 12:05 Blood Culture - Preliminary Blood SPECIMEN COLLECTED A&P Assessment and plan (1) Encephalopathy acute: This is multifactorial. Likely secondary to narcotic usage in the face of renal failure secondary to postobstructive uropathy. Doubt sepsis was contributing. Greatly improved today. Status: Acute (2) Acute kidney injury: Most likely secondary to urinary retention is over 1 L of urine was obtained after Calle catheter placement. Flomax initiated today. CT abdomen and pelvis demonstrated bilateral renal cysts but had no hydronephrosis or obstruction. Obstipation was noted. He has now had a bowel movement. Renal function improved. Continue to hold Lasix today. Status: Acute (3) Urinary retention: Calle placed Flomax initiated. Constipation improved. Will need discharged with catheter and follow-up with urology. Status: Acute (4) Hyperkalemia: Insulin and glucose, calcium gluconate, Kayexalate given in the emergency department Continue to hold BEATRIZ inhibitor and Metformin. Potassium improved. Recheck tomorrow. Continue hydration. Status: Acute (5) Pneumonia: Secondary to concern of sepsis, will place initially on Zosyn plus vancomycin Sputum culture, MRSA PCR pending Status: Acute (6) Acute respiratory failure with hypoxia: Currently weaned down to room air Status: Acute (7) Hyponatremia: Resolved TSH, cortisol level normal Status: Acute (8) Anemia: Await stool Hemoccult Hemoglobin improved Change Protonix to 40 mg every 12 hours Iron deficient on work-up. Consider further evaluation as an outpatient. Status: Acute (9) Sepsis: Broad-spectrum antibiotics Appears to be clinically resolved. Await cultures. Status: Acute (10) Rhabdomyolysis: Mild rhabdomyolysis noted. CK improved Status: Acute (11) Elevated troponin: Type II elevation. Status: Acute Additional A&P Information Metabolic acidosis, resolved Constipation. Bowel movement this morning, resolving Recent surgery left foot with some left foot wound dehiscence. X-ray demonstrates no obvious osteomyelitis but cannot be completely ruled out. Currently on vancomycin. Await blood cultures and MRSA PCR. Chronic pain, on chronic narcotics. Narcotics restarted, as well as Neurontin and Lyrica at lower doses. Monitor mental status. Borderline hypotension. Hold blood pressure medications. History of coronary artery disease with previous angioplasty. I cannot determine that any angioplasty has been done in the last year. However, we will continue Plavix for the time being unless significant GI bleed is discovered. Type 2 diabetes. Mild sliding scale insulin Diabetic neuropathy. Secondary to encephalopathy hold medications currently GERD. Protonix will suffice Hypertension. Borderline hypotension currently. Hyperlipidemia DJD/osteoporosis Depression Multiple other medical problems as outlined in his past medical history Full code SCDs for DVT prophylaxis secondary to concern of anemia, history of dark stools Ready for transfer out of ICU, possible discharge tomorrow Attestations Medical Necessity Statement*: Needs continued close monitoring secondary to acute renal failure, possible sepsis, pneumonia for IV antibiotics. 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
--- NOTE | 2021-04-23 10:17 | PC.NURSE ---
1000 Obtained patients home meds from our [facility], counted and recorded and taped bag of meds. 1010 Transfered patient and home meds to [facility] and handed meds to Katya WALL on 2nd floor. Patient in bed and call light in lap. Iv NS on pump at 100ml/hr. Also transferred patient keys with him, he ask that I put them in his belongings bag in bedside dresser digital traffic coordinator bag of belongings with socks.
[2021-04-23 11:08] LABS: Glucose Point of Care 196 mg/dL (70-110)
[2021-04-23] MEDS: docusate sodium 100 mg Capsule PO (17:03)
[2021-04-23 17:17] LABS: Glucose Point of Care 123 mg/dL (70-110)
--- NOTE | 2021-04-23 19:20 | PC.NURSE ---
Report to [place] WALL at this time.
[2021-04-23 21:12] LABS: Glucose Point of Care 205 mg/dL (70-110)
[2021-04-23] MEDS: oxyCODONE 5 mg IR Tab/Cap PO (22:56)
[2021-04-24] MEDS: piperacillin-tazobactam 3.375 GM in sodium chloride 0.9% (plus) 50 ML IV (00:59)
[2021-04-24 03:13] VITALS: BP 131/76; PULSE 86; RESP 16; TEMP 36.7; O2SAT 96
[2021-04-24] MEDS: acetaminophen 325 mg Tablet 650 MG PO (03:56)
[2021-04-24 05:46] VITALS: PULSE 75
[2021-04-24 06:07] LABS: Glucose Point of Care 105 mg/dL (70-110)
[2021-04-24 06:12] LABS: Basophils % 0.6 %; Eosinophils # 0.3 10^3/uL (0.0-0.8); Eosinophils % 5.4 %; Hematocrit 35.9 % (42.0-52.0); Hemoglobin 11.7 g/dL (11.7-16.6); Lymphocytes # 1.2 10^3/uL (0.8-4.8); Lymphocytes % 24.6 %; Mean Corpuscular HGB Conc 32.6 g/dL (30.0-36.0); Mean Corpuscular Hemoglobin 27.2 pg (28.0-34.0); Mean Corpuscular Volume 83.5 fL (80-94); Mean Platelet Volume 10.9 fL (7.4-10.4); Monocytes # 0.7 10^3/uL (0.2-0.9); Monocytes % 13.4 %; Neutrophils # 2.78 10^3/uL (1.8-7.7); Neutrophils % 55.8 %; Nucleated Red Blood Cells % 0 %; Platelet Count 170 10^3/cmm (130-400); Red Cell Distribution Width 15.1 % (12.1-15.1)
[2021-04-24 06:27] LABS: Alanine Aminotransferase 16 U/L (0-41); Albumin Level 3.4 g/dL (3.5-5.2); Alkaline Phosphatase 59 IU/L (40-130); Anion Gap 13.2 (5-19); Aspartate Amino Transferase 23 U/L (0-40); Blood Urea Nitrogen 17 mg/dL (8-23); Calcium 8.6 mg/dL (8.5-10.5); Carbon Dioxide 25 mmol/L (22-29); Chloride 105 mmol/L (98-107); Creatinine Clr Calc Pharmacy 105.2275; Globulin 3.7 g/dL (1.3-4.6); Glomerular Filtration Rate 112.5 mL/min (90-130); Glucose 101 mg/dL (65-115); Osmolality Calculated 290 mOsm/kg (285-295); Potassium 4.2 mmol/L (3.5-5.1); Sodium 139 mmol/L (136-145); Total Bilirubin 0.5 mg/dL (0.15-1.2); Total Protein 7.1 g/dL (6.6-8.7)
[2021-04-24 07:09] VITALS: BP 153/89; PULSE 80; RESP 16; TEMP 36.6; O2SAT 95
[2021-04-24] MEDS: sodium chloride 0.9% 1,000 ML 100 ML IV (08:02)
--- NOTE | 2021-04-24 09:15 | PM.DCS ---
Discharge Providers Date of Admission: 04/22/21 14:53 Date of Discharge: April 24, 2021 Attending Provider at Admission: Dain Engle MD Attending Provider at Discharge: Dain Engle MD Primary Care Provider: Carson Raman Diagnoses at Discharge Discharge Diagnosis (1) Encephalopathy acute: Status: Acute (2) Acute kidney injury: Status: Acute (3) Urinary retention: Status: Acute (4) Hyperkalemia: Status: Acute (5) Pneumonia: Status: Acute (6) Acute respiratory failure with hypoxia: Status: Acute (7) Hyponatremia: Status: Acute (8) Anemia: Status: Acute (9) Sepsis: Status: Acute (10) Rhabdomyolysis: Status: Acute (11) Elevated troponin: Status: Acute Reason for Visit Reason for Visit: LOW BP/ TEMP/ NOT FEELING WELL Hospital Course Hospital Course Giovany is a 65-year-old white male who presented to the emergency department with confusion, lethargy. He was found to be in acute renal failure, with acute urinary retention greater than 1 L in his bladder. Pneumonia left lower lobe, acute hypoxic respiratory failure was also noted. A Calle was placed. He was rehydrated. IV antibiotics were initiated. These were broad-spectrum initially secondary to concern of sepsis. With the above treatment he rapidly improved. Renal function returned to normal. Encephalopathy cleared. He was able to come down off his oxygen. An x-ray of his left foot was also obtained secondary to recent podiatry surgery. No definitive evidence of osteomyelitis was noted, and with blood cultures negative this was unlikely to be playing an issue. I discussed with him and his family regarding his pain medicine usage which could have impacted his lethargy in the face of renal failure. Overall his medications will be decreased somewhat as noted in the discharge medication list. He will follow-up with urology in 7 to 10 days for possible catheter removal. Flomax was initiated. He will finish 5 days of Levaquin for pneumonia. He will follow-up with pain clinic, and his primary care provider. 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 Physical Exam Narrative: EXAM NARRATIVE: General exam no apparent distress Cardiovascular regular in rhythm without murmur Lungs clear Abdomen is soft positive bowel sounds Extremities no cyanosis clubbing or edema. Urinary Catheter Management^: Calle: Cath Placed During This Visit: yes Reason for Continuing Indwelling Catheter: Acute Urinary Retention or Obstruction Urinary Catheter Date of Insertion: 04/22/21 Urinary Catheter Time of Insertion: 08:40 Discharge Data Data Completed and Pending: Completed Studies During Hospitalization Category Date Time Status CT abdomen pelvis w con* [id number] Stat Cat Scan 04/22/21 08:[address] head wo con* [id number] Stat Cat Scan 04/22/21 08:45 Completed XR chest 1V michael ble [id number] Stat Exams 04/22/21 08:45 Completed XR foot LT 2V 736 20 Urgent Exams 04/22/21 11:20 Completed Pending at discharge Category Date Time Status Blood Culture Sta t Lab 04/22/21 12:10 Results Immunochemical Fe neville OCB Routine Lab 04/22/21 14:54 Uncollected Sputum Culture an d Gram Stain Routi ne Lab 04/22/21 14:54 Uncollected Labs from last 24 hours 04/24/21 04/24/21 04/24/21 06:02 05:46 05:46 WBC 5.0 RBC 4.30 Hgb 11.7 Hct 35.9 L MCV 83.5 MCH 27.2 L MCHC 32.6 RDW 15.1 Plt Count 170 MPV 10.9 H Neut % (Auto) 55.8 Lymph % (Auto) 24.6 [place] % (Auto) 13.4 Eos % (Auto) 5.4 Baso % (Auto) 0.6 Neut # (Auto) 2.78 Lymph # (Auto) 1.2 [place] # (Auto) 0.7 Eos # (Auto) 0.3 Baso # (Auto) 0.0 Nucleated RBC % (a uto) 0 Nucleated RBCs # 0.0 Sodium 139 Potassium 4.2 Chloride 105 Carbon Dioxide 25 Anion Gap 13.2 BUN 17 Creatinine 0.7 GFR Calculation 112.5 Glucose 101 POC Glucose 105 Calculated Osmolal ity 290 Calcium 8.6 Total Bilirubin 0.5 AST 23 ALT 16 Alkaline Phosphata se 59 Total Protein 7.1 Albumin 3.4 L Globulin 3.7 04/23/21 04/23/21 04/23/21 20:59 17:00 11:00 WBC RBC Hgb Hct MCV MCH MCHC RDW Plt Count MPV Neut % (Auto) Lymph % (Auto) [place] % (Auto) Eos % (Auto) Baso % (Auto) Neut # (Auto) Lymph # (Auto) [place] # (Auto) Eos # (Auto) Baso # (Auto) Nucleated RBC % (a uto) Nucleated RBCs # Sodium Potassium Chloride Carbon Dioxide Anion Gap BUN Creatinine GFR Calculation Glucose POC Glucose 205 H 123 H 196 H Calculated Osmolal ity Calcium Total Bilirubin AST ALT Alkaline Phosphata se Total Protein Albumin Globulin Vitals: Last Vital Signs Temp 97.8 F 04/24/21 07:09 Pulse 80 04/24/21 07:09 Resp 16 04/24/21 07:09 BP 153/89 04/24/21 07:09 Pulse Ox 95 04/24/21 07:09 Discharge Plan Discharge Patient Disposition: Home Health Service Condition: Stable Prescriptions: New tamsulosin 0.4 mg Capsule 0.4 mg PO DAILY Qty: 30 RF: 0 levofloxacin 750 mg tablet 750 mg PO DAILY 5 Days Qty: 5 RF: 0 pantoprazole [Protonix] 40 mg tablet,delayed release (DR/EC) 40 mg PO DAILY Qty: 30 RF: 0 Continued lisinopril 10 mg tablet 10 mg PO DAILY RF: 0 omeprazole 40 mg capsule,delayed release(DR/EC) 40 mg PO DAILY RF: 0 omega-3 acid ethyl esters [Lovaza] 1 gram capsule 1 cap PO BID RF: 0 furosemide [Lasix] 40 mg tablet 40 mg PO DAILY RF: 0 (DME) Crutches See Rx Instructions .Route .MEDSUPPLY Qty: 1 RF: 0 (DME) Cam boot on left See Rx Instructions .Route .MEDSUPPLY Qty: 1 RF: 0 clopidogrel [Plavix] 75 mg tablet 75 mg PO DAILY Qty: 90 RF: 0 nitroglycerin [Nitrostat] 0.4 mg tablet, sublingual 0.4 mg SUBLINGUAL Q5M PRN (Reason: Chest Pain) Qty: 90 RF: 2 alendronate 70 mg tablet 70 mg PO Q7D RF: 0 potassium chloride 20 mEq tablet extended release 20 meq PO DAILY Qty: 30 RF: 5 metformin 500 mg Tablet Extended Release 24 Hr 1,000 mg PO BID RF: 0 Tresiba FlexTouch U-200 200 unit/mL (3 mL) insulin pen 110 unit SUBCUT DAILY RF: 0 duloxetine [Cymbalta] 60 mg Capsule,Delayed Release(Dr/Ec) 60 mg PO BID RF: 0 morphine 30 mg tablet extended release 30 mg PO Q12H RF: 0 mirtazapine 7.5 mg tablet 7.5 mg PO BEDTIME RF: 0 Jardiance 25 mg tablet 25 mg PO DAILY RF: 0 Changed gabapentin [Neurontin] 300 mg capsule 300 mg PO TID Qty: 0 RF: 0 pregabalin [Lyrica] 75 mg Capsule 75 mg PO BID Qty: 0 RF: 0 oxycodone 30 mg tablet 5 mg PO Q4H PRN (Reason: Pain) Qty: 0 RF: 0 Discharge Orders: Discharge Order (Routine); Ordered 04/24/21 Ordered By: Dain Engle Referrals: Rodri Aguilar MD [Physician] - 7-10 days (Follow-up urinary retention, with Calle placed) Carson Raman [Primary Care Provider] - 4-7 days Discharge Diet: Diabetic Discharge Activity: Increase activity as tolerated Patient Instructions: Opioid Safety Activity Restrictions/Additional Instructions: Leave Calle in at discharge. Follow-up with primary care provider 4 to 7 days Urology follow-up 7 days Follow-up with your pain clinic physician regarding changes in pain medication. Home health on discharge. Arrange follow up with podiatry for post op follow up Discharge Attestations Time Spent in Discharge Care*: greater than 30 min Status at Discharge: Cognitive status at discharge: cognitively intact, Behavioral status at discharge: cooperative, Quality Metrics Clinical Quality Measures During this hospital stay, did patient experience: None Coding Level of Care Code Acute g FW DC note Diagnoses Encephalopathy acute G93.40 Acute kidney injury N17.9 Urinary retention R33.9 Hyperkalemia E87.5 Pneumonia J18.9 Acute respiratory failure with hypoxia J96.01 Hyponatremia E87.1 Anemia D64.9 Sepsis A41.9 Rhabdomyolysis M62.82 Elevated troponin R77.8
[2021-04-24 09:20] VITALS: BP 132/70; PULSE 84; RESP 16; TEMP 36.9; O2SAT 96
[2021-04-24] MEDS: gabapentin 300 mg Capsule PO (09:46)
[2021-04-24] MEDS: pregabalin 75 mg Capsule PO (09:46)
[2021-04-24] MEDS: tamsulosin 0.4 mg Capsule PO (09:46)
[2021-04-24] MEDS: morphine ER (12 HR) 15 mg Tablet PO (09:46)
[2021-04-24] MEDS: clopidogrel 75 mg Tablet PO (09:47)
[2021-04-24] MEDS: pantoprazole DR 40 mg Tablet PO (09:47)
[2021-04-24] MEDS: docusate sodium 100 mg Capsule PO (09:47)
[2021-04-24 11:20] LABS: Glucose Point of Care 98 mg/dL (70-110)
[2021-04-24 11:39] VITALS: BP 155/80; PULSE 73; RESP 17; TEMP 36.8; O2SAT 97
[2021-04-24 12:00] VITALS: BP 155/80; PULSE 73; RESP 17; TEMP 36.8; O2SAT 97
--- NOTE | 2021-04-24 13:00 | PC.NURSE ---
patient verbalizes understanding of discharge instructions, home medications, and follow up appointments. extensive education regarding catheter care including hygiene, emptying, and switching between leg bag, and regular drainage bag provided. pt verbalizes his understanding of caring for catheter. patients home medications were returned to him from the [facility] and security returned his wallet. the patient signed that all of his belongings were returned and accounted for.
== END 2021-04-24 12:00 | disposition home health service (06) | DRG 871 ==
LOC: ER 13:45 → ICU 15:59 → MEDSURG 04-23 10:05
PROVIDERS: Admitting Provider Internal Medicine; Emergency Provider Family Medicine; PCP Family Medicine; Visit Provider Internal Medicine
DX: A41.9 Sepsis, unspecified organism (principal); G92 Toxic encephalopathy; J18.9 Pneumonia, unspecified organism; J96.01 Acute respiratory failure with hypoxia; N17.9 Acute kidney failure, unspecified; E87.1 Hypo-osmolality and hyponatremia; M62.82 Rhabdomyolysis; E87.2 Acidosis; T81.31XA Disruption of external operation (surgical) wound, not elsewhere classified, initial encounter; I25.10 Atherosclerotic heart disease of native coronary artery without angina pectoris; Z95.5 Presence of coronary angioplasty implant and graft; I10 Essential (primary) hypertension; E78.2 Mixed hyperlipidemia; E11.42 Type 2 diabetes mellitus with diabetic polyneuropathy; M19.011 Primary osteoarthritis, right shoulder; G47.30 Sleep apnea, unspecified; T40.605A Adverse effect of unspecified narcotics, initial encounter; R33.9 Retention of urine, unspecified; R77.8 Other specified abnormalities of plasma proteins; K59.00 Constipation, unspecified; E87.5 Hyperkalemia; D64.9 Anemia, unspecified; Z79.4 Long term (current) use of insulin; Z79.891 Long term (current) use of opiate analgesic; Z79.02 Long term (current) use of antithrombotics/antiplatelets; F32.9 Major depressive disorder, single episode, unspecified; M81.0 Age-related osteoporosis without current pathological fracture; K21.9 Gastro-esophageal reflux disease without esophagitis; I95.9 Hypotension, unspecified; G89.29 Other chronic pain
CPT/HCPCS: 36415; 36416; 36600; 51702; 70450; 71045; 73620; 74177; 80048; 80051; 80053; 81003; 82009; 82330; 82533; 82550; 82728; 82805; 82962; 83540; 83550; 83605; 83690; 84443; 84484; 85025; 87040; 87086; 87641; 93005; 96365; 96372; 96375; 99291; C9113; J0610; J1815; J1956; J2543; J3370; J7030; Q9967

== ENCOUNTER → 2021-05-06 08:55 | Outpatient (BNVA) | payer MEDICARE, MEDICAID, SELFPAY | PROVIDERS: PCP Family Medicine; Referring Provider Internal Medicine; Visit Provider Nurse Practitioner Family | DX: R33.9 Retention of urine, unspecified (principal) | CPT/HCPCS: 81003 ==

== ENCOUNTER → 2021-07-30 10:01 | Outpatient (BNVA) | payer MEDICARE, MEDICAID, SELFPAY | PROVIDERS: PCP Family Medicine; Visit Provider Nurse Practitioner Family | DX: R60.0 Localized edema (principal); I10 Essential (primary) hypertension | CPT/HCPCS: 80048; 83880 ==